=== PATIENT | female | born 1955 | race Caucasian/White ===

== ENCOUNTER 2019-12-14 12:06 | Outpatient (CLI) | payer SELFPAY ==
--- NOTE | 2019-12-14 | XR_ITS ---
WS: [id number] RIGHT KNEE: 3 VIEW(S) TECHNIQUE: AP, oblique(s) and lateral. HISTORY: RIGHT KNEE PAIN COMPARISON: 08/27/2018 Acute tibial plateau fracture extends to the tibial metaphysis. There is a fracture line from the raza tral tibial plateau which extends obliquely to the medial femoral metaphysis. Fracture line is slight ly comminuted and also extends laterally. No tibial plateau depression. Mild narrowing of the patellofemoral joint space. Small joint effusion. Notified JOSEFINA Suarez at 12/14/2019 2:32 PM. XR/XR knee RT 3V* [id number] IMPRESSION: Comminuted, nondisplaced tibial plateau fracture with extension to the tibial m etaphysis.
== END 2019-12-14 12:07 | disposition home or self-care (01) ==
LOC: RADOUTREAD 13:56
PROVIDERS: Visit Provider Physician Assistant
DX: Z76.89 Persons encountering health services in other specified circumstances (principal)

== ENCOUNTER 2019-12-16 11:13 | Outpatient (CLI) | payer SELFPAY ==
--- NOTE | 2019-12-16 11:17 | CT_ITS ---
WS: [id number] NONCONTRAST CT RIGHT KNEE WITH CORONAL AND SAGITTAL REFORMATTED IMAGES TECHNIQUE: Noncontrast CT right knee with coronal and sagittal reformatted images. CLINICAL INFORMATION: FX OF PLATEAU OF R TIBIA COMPARISON: None. DLP: 139.[address] scans at [facility] use at least one of these dose optimization techniques: automat ed exposure control; mA and/or kV adjustment per patient size (includes targeted exams where dose is matched to clinical indication); or iterative reconstruction. FINDINGS: Comminuted complex fracture involving the tibial plateau. Comminuted fracture involves the tibial met aphysis extending into the proximal diaphysis. Comminuted fracture extends to the tibial spines. Frac ture is vertically and horizontally oriented and involves the anterior and posterior cortex at the ti bial plateau. Slight fragmentation of the tibial spines. No displaced intra-articular fragments. Hypertrophic changes along the joint line. Distal femoral condyles are normal in appearance. Normal f ibula. Hypertrophic patella. Small suprapatellar effusion. CT/CT knee RT wo con* [id number] IMPRESSION: 1. Comminuted complex proximal tibial fracture extending to the tibial plateau at the tibial spines. No significant tibial plateau depression. 2. Complex fracture involves the tibial plateau extending to the metaphysis an d proximal diaphysis. Fracture traverses the anterior and posterior cortex. 3. Small suprapatellar effusion. 4. Hypertrophic patella.
== END 2019-12-16 11:14 | disposition home or self-care (01) ==
LOC: RAD 11:15
PROVIDERS: PCP Physician Assistant; Visit Provider Physician Assistant
DX: S82.141A Displaced bicondylar fracture of right tibia, initial encounter for closed fracture (principal); X58.XXXA Exposure to other specified factors, initial encounter; M25.461 Effusion, right knee
CPT/HCPCS: 73700

== ENCOUNTER 2019-12-16 12:13 | Day surgery (SDC) | payer SELFPAY ==
[2019-12-15 15:28] VITALS: BMI 24.0
--- NOTE | 2019-12-15 15:37 | SUR.PREOP ---
WHILE SPEAKING WITH PATIENT DURING HER PHONE PRE OP, AND GOING OVER HER MEDICATIONS, PATIENT STATED SHE HAS BEEN TAKING 4 BABY ASPIRIN EVERY 4 HOURS FOR PAIN. I CONFIRMED THIS WITH HER MULTIPLE TIMES TO MAKE SURE I WAS HEARING HER CORRECTING. SHE REPEATED THE SAME THING. SO THIS NURSE CALLED HCERI ZEPEDA'S NURSE AND TOLD HER WHAT THE PATIENT SAID. SHE STATED THAT SHE WOULD NOTIFY DR. ZEPEDA. CHERI CALLED BACK AND STATED SHE TEXTED DR. ZEPEDA ABOUT THE ASPIRIN AND DR. ZEPEDA SENT HER A TEXT BACK STATING GO FOR IT, WE'LL JUST USE A TOURNIQUET.
[2019-12-16] VITALS (8 sets, daily range): BP systolic 105–143; BP diastolic 61–99; PULSE 85–111; RESP 15–20; TEMP 36.2–37.1; O2SAT 90–96
--- NOTE | 2019-12-16 | XR_ITS ---
WS: [id number] C-ARM RADIOGRAPHS RIGHT KNEE; 4 IMAGES HISTORY: ORIF right knee COMPARISON: 12/14/2019 Plate and screw fixation of a comminuted fracture involving the proximal tibia. Fracture is in good p osition and alignment. No depression along the tibial plateau. XR/XR knee RT 1-2V [id number] IMPRESSION: Intraoperative fixation proximal tibial fracture in normal alignment.
--- NOTE | 2019-12-16 | SCC_ITS ---
Procedure Done: Open reduction internal fixation right bicondylar tibial plateau fracture 174.5 seconds of fluoroscopic guidance, for a cumulative dose of 5.79 mGy, was provided to Dr. Nickerson by the radiology department. C-arm images of the RIGHT knee were saved for the patient's permanent record. [facility]ALS[facility]
[2019-12-16] MEDS: sodium chloride 0.9% 1,000 ML 30 ML IV (12:30)
--- NOTE | 2019-12-16 12:52 | ANES.PREANE2 ---
Pre-Anesthetic Assessment Pre-Anesthetic Assessment: Height/Weight: Height 1.63 m Weight 63.503 kg Temp Pulse Resp BP Pulse Ox 98.7 F 93 20 H 114/99 93 12/16/19 12:27 12/16/19 12:27 12/16/19 12:27 12/16/19 12:27 12/16/19 12:27 Preop Diagnosis: Right medial tibial plateau fracture Proposed Procedure: Operation Date: 12/16/19 12:20 Proposed Procedures p ORIF Tibial Plateau 78590 S82.131A(Right) - Gladys Nickerson MD Last intake: Intake Last Liquid Date 12/15/19 Last Solid Date 12/15/19 Social: Social History: Tobacco Packs per day: 2.5 Pack years: 100+ Exam: Pre-Anes Outpt Exam: alert, oriented x 3, clear to auscultation bilaterally and regular rate & rhythm Airway: Submandibular: WNL Cervical ROM: WNL MP: 2 Hepatic: Hepatic: Hepatitis Comments: B age 15 Dx'd C '90/ cured Anesthetic Plan: ASA status: III Anesthesia: General Meds/Allergies Current Medications: Current Medications Generic Name Dose Route Start Last Admin Trade Name Freq PRN Reason Stop Dose Admin Sodium Chloride 1,000 mls @ 30 ml s/hr 12/16/19 12:30 12/16/19 12:30 Sodium Chloride 0.9% IV 12/17/19 12:29 30 mls/hr .Q24H LAZ Administration PFSH Anesthesia PFSH: Social History Smoking and tobacco status: current every day smoker cigarettes Packs smoked per day: 2.5 Alcohol intake: never Data Anesthesia Cardiac Studies: No Data to Display
[2019-12-16 12:53] LABS: Basophils # 0.1 10^3/uL (0.0-0.1); Basophils % 0.8 %; Eosinophils # 0.1 10^3/uL (0.0-0.8); Eosinophils % 0.6 %; Hemoglobin 15.2 g/dL (11.5-15.3); Lymphocytes # 2.2 10^3/uL (0.8-4.8); Mean Corpuscular Hemoglobin 30.5 pg (28.0-34.0); Mean Corpuscular Volume 92.2 fL (81-99); Mean Platelet Volume 8.1 fL (7.4-10.4); Monocytes # 0.6 10^3/uL (0.2-0.9); Monocytes % 5.4 %; Neutrophils # 7.6 10^3/uL (1.8-7.7); Neutrophils % 71.3 %; Nucleated Red Blood Cells % 0 %; Platelet Count 297 10^3/cmm (130-400); Red Blood Count 4.99 10^6/uL (4.1-5.3); Red Cell Distribution Width 13.7 % (12.1-15.1); White Blood Count 10.7 10^3/uL (4.0-10.0)
--- NOTE | 2019-12-16 12:53 | PM.HPUD ---
H&P update H&P Update: DATE OF SURGERY/PROCEDURE: 12/16/19 DATE H&P PERFORMED: 12/16/19 H&P UPDATE INFORMATION: No changes to prior documentation and H&P is in [facility] date indicated PREOP DIAGNOSIS: Right tibial bicondylar plateau fracture PLANNED PROCEDURE: Operation Date: 12/16/19 12:20 Proposed Procedures p ORIF Tibial Plateau 10657 S82.131A(Right) - Gladys Nickerson MD Full H&P Medications/Allergies: Current Medications: Current Medications Generic Name Dose Route Start Last Admin Trade Name Freq PRN Reason Stop Dose Admin Sodium Chloride 1,000 mls @ 30 ml s/hr 12/16/19 12:30 12/16/19 12:30 Sodium Chloride 0.9% IV 12/17/19 12:29 30 mls/hr .Q24H LAZ Administration Perinent History: Social History: Social History Smoking and tobacco status: current every day smoker cigarettes Packs smoked per day: 2.5 Alcohol intake: never
[2019-12-16 13:11] LABS: Anion Gap 17.3 (5-19); Blood Urea Nitrogen 18 mg/dL (8-23); Calcium 10.5 mg/dL (8.5-10.5); Carbon Dioxide 21 mmol/L (22-29); Chloride 103 mmol/L (98-107); Creatinine Clr Calc Pharmacy 87.0623; Glomerular Filtration Rate 100.6 mL/min (90-130); Glucose 101 mg/dL (65-115); Osmolality Calculated 281 mOsm/kg (285-295); Potassium 4.3 mmol/L (3.5-5.1); Sodium 137 mmol/L (136-145)
[2019-12-16] MEDS: CELEcoxib 200 mg Capsule 400 MG PO (13:13)
[2019-12-16] MEDS: ceFAZolin 1,000 mg SDV 1000 MG IRRIGATION (14:08)
--- NOTE | 2019-12-16 15:27 | P.OP_ITS ---
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 Minimal displacement. Condition: stable Disposition: same day Brief History: This 64-year-old woman was in her usual state of health when she fell approximately 3 weeks ago. The patient was seen on December 14 at her primary care/urgent care office at [facility]. At that time, the patient was found to have a tibial plateau fracture which appeared to involve only the medial portion of the condyle. Upon further evaluation with CT today, the patient was found to have a bicondylar tibial plateau fracture. She was scheduled for operative intervention and the fracture was repaired utilizing the Clarence lateral tibial plate. It is felt that the patient will likely be able to be discharged to home. Procedure: Patient was seen in the preoperative holding area and leg was marked. Patient was brought to the operating theater and placed on the operating room table. After undergoing adequate general anesthesia per LMA, the patient's right lower extremity was prepped and draped in usual fashion utilizing DuraPrep. The leg was draped free. Fluoroscopy was used throughout the surgical procedure. We did have a tourniquet high on the right lower extremity. This was elevated to 250 mmHg and total tourniquet time was 90 minutes. Tourniquet elevation followed exsanguination of the leg. A surgical pause was performed. At the time of the surgical pause we identified the site and side of surgery as well as the patient's identity and availability of equipment. We also confirmed appropriate administration of IV antibiotics. Following the above, an incision was made along the lateral aspect of the distal thigh progressing along the joint line and then anteriorly along the tibial sha ft. Skin was elevated and full-thickness fashion. The fascia overlying the anterior crest of the tibia was then incised to allow us to elevate soft tissues off the lateral aspect of the tibia. Periosteal elevator was used to expose the tibial shaft and the exposure was continued proximally to allow elevation of soft tissue from the lateral aspect of the very proximal tibia. A plate had been chosen. And this was placed in position and position of the plate was confirmed in AP and lateral planes. K wires were then used to hold the plate in position. 1 nonlocking screw was used in an attempt to pull the plate down to the bone. Initially, a cortical screw was utilized, however, secondary to the patient's bone quality, we did convert this to a cancellus screw. The plate was then attached to the bone primarily with locking screws and with fluoroscopic guidance throughout. We assured to have sufficient cortices numbering 6 distal to the fracture. Multiple screws were placed along the under portion of the tibial plateau to support the tibial plateau as well. We had excellent fixation with locking screws and excellent position of the fracture. Attention was then directed to closure. Closure was accomplished after irrigation with Betadine and normal saline. The wound was then irrigated with normal saline containing Ancef. Once this was accomplished, the wound was suctioned dry. The fascial tissues were closed with 0 Vicryl in an interrupted fashion. Subcutaneous tissues were closed with 2-0 Monocryl and the skin was closed with a running 3-0 Monocryl. This was followed by Exofin and Steri- Strips. Telfa and Tegaderm were then placed followed by sterile soft roll and an Basil wrap. The procedure was well tolerated without complication. Tourniquet time was 90 minutes at 250 mmHg. The patient will be discharged home to follow- up in my office as scheduled.
--- NOTE | 2019-12-16 15:40 | SUR.PHASEI ---
1539 PATIENT TO PACU AT THIS TIME FROM OR. RR EVEN AND UNLABORED, PT ON SIMPLE MASK FROM OR, 8L SPO2 94%. DRESSING TO RIGHT KNEE, CDI, WITH LISE BANDAGE. RIGHT PEDAL PULSE PALPATED AND MARKED, CAP REFILL LESS THAN 3 SECONDS.
--- NOTE | 2019-12-16 15:50 | SUR.PHASEI ---
[address] HINGED KNEE BRACE. PATIENT TOLERATED PROCEDURE WELL.
--- NOTE | 2019-12-16 16:00 | SUR.PHASEI ---
1600 PATIENTS RIDE CALLED AND UPDATED THAT SHE WILL BE READY FOR DISCHARGE SOON.
--- NOTE | 2019-12-16 16:06 | SUR.PHASEI ---
1601 PATIENT TO OPS VIA [facility]. PATIENT DENIES PAIN. RR EVEN AND UNLABORED. DRESSING WITH LISE WRAP INTACT TO RIGHT KNEE WITH HINGED KNEE BRACE IN PLACE.
== END 2019-12-16 17:16 | disposition home or self-care (01) ==
PROVIDERS: PCP Physician Assistant; Visit Provider Specialist
PROC: (CPT 27536; principal; 2019-12-16 12:00)
DX: S82.141A Displaced bicondylar fracture of right tibia, initial encounter for closed fracture (principal); W19.XXXA Unspecified fall, initial encounter; F17.210 Nicotine dependence, cigarettes, uncomplicated; Z79.82 Long term (current) use of aspirin
CPT/HCPCS: 27536; 12345; 36415; 73560; 76000; 80048; 85025; 96365; C1713; J0131; J0690; J1885; J2001; J2250; J2270; J2405; J2704; J3010; J3490; J7030; L1812

== ENCOUNTER → 2020-01-04 11:36 | Outpatient (BNVA) | payer SELFPAY | PROVIDERS: PCP Physician Assistant; Visit Provider Specialist | DX: S82.141A Displaced bicondylar fracture of right tibia, initial encounter for closed fracture (principal); X58.XXXA Exposure to other specified factors, initial encounter | CPT/HCPCS: 73560 ==

== ENCOUNTER → 2020-02-03 13:03 | Outpatient (BNVA) | payer SELFPAY | PROVIDERS: PCP Physician Assistant; Visit Provider Specialist | DX: M25.561 Pain in right knee (principal); S82.101A Unspecified fracture of upper end of right tibia, initial encounter for closed fracture; X58.XXXA Exposure to other specified factors, initial encounter | CPT/HCPCS: 73560 ==

== ENCOUNTER → 2020-03-02 13:10 | Outpatient (BNVA) | payer SELFPAY | PROVIDERS: PCP Physician Assistant; Visit Provider Specialist | DX: S82.141A Displaced bicondylar fracture of right tibia, initial encounter for closed fracture (principal); Z98.890 Other specified postprocedural states; X58.XXXA Exposure to other specified factors, initial encounter | CPT/HCPCS: 73560; 73565 ==

== ENCOUNTER → 2020-03-28 11:36 | Outpatient (BNVA) | payer SELFPAY | PROVIDERS: PCP Physician Assistant; Visit Provider Specialist | DX: S82.141A Displaced bicondylar fracture of right tibia, initial encounter for closed fracture (principal); Z98.890 Other specified postprocedural states; Z87.81 Personal history of (healed) traumatic fracture; X58.XXXA Exposure to other specified factors, initial encounter | CPT/HCPCS: 73562 ==

== ENCOUNTER 2022-02-20 14:09 | Inpatient (IN) | payer MEDICARE, SELFPAY ==
[2022-02-20] VITALS (10 sets, daily range): BP systolic 124–167; BP diastolic 78–104; PULSE 98–125; RESP 18–33; TEMP 36.4; O2SAT 89–94; BMI 26.2; BMI 27.2
--- NOTE | 2022-02-20 14:32 | XRR_ITS ---
PROCEDURE INFORMATION: Exam: XR Chest Exam date and time: 02/20/2022 2:40 PM Age: 66 years old Clinical indication: Cough and dyspnea; Additional info: Dyspnea/cough TECHNIQUE: Imaging protocol: XR of the chest. Views: 1 view. COMPARISON: CR Chest 1 [place] [id number] 06/17/2018 4:01 AM FINDINGS: Lungs: Unremarkable. No consolidation. Pleural spaces: Right lower lobe pleural effusion is seen. No pneumothorax. Heart/Mediastinum: Unremarkable. No cardiomegaly. Bones/joints: Unremarkable. XR/XR chest 1V portable [id number] IMPRESSION: 1. Right lower lobe pleural effusion 2. Otherwise No acute findings.
--- NOTE | 2022-02-20 14:32 | W.ED.SOB ---
HPI - SOB/Dyspnea General: Chief Complaint: Shortness of Breath/Dyspnea Stated Complaint: sent to ER per Sandip Bleckley? Time Seen by Provider: 02/20/22 14:32 Source: patient Mode of arrival: ambulatory Limitations: no limitations History of Present Illness: HPI Narrative: 66-year-old female presents to the emergency room complaining of shortness of breath. She had not been seen by her primary care in quite some time came to the primary care office today was hypoxic and had audible wheezing with labored respirations. She denies fever nausea no productive cough.She has had some orthopnea with that as well. MD elicited complaint: shortness of breath and cough Pertinent past history: COPD Onset (ago): day(s) Timing: constant Severity: severe Exacerbating factors: lying flat, exertion and coughing Relieving factors: oxygen, rest and bronchodilators Known history of: COPD Associated symptoms: Reports chest congestion, cough and orthopnea; Deny abdominal pain, chest pain, diaphoresis, dizziness, extremity pain, fever(s), hemoptysis, lightheadedness, myalgias, nausea, palpitations, paresthesias, polydipsia, polyuria, rash, sense of impending doom, syncope or vomiting Treatment prior to arrival: none Review of Systems Const: Denies: fever(s), chills or diaphoresis ENMT: Denies: throat pain, ear or mastoid pain, nasal discharge or nasal congestion Card: Reports: orthopnea; Denies: chest pain, palpitations, lightheadedness or syncope Resp: Reports: chest congestion; Denies: hemoptysis GI: Denies: abdominal pain, nausea or vomiting : Denies: flank pain, difficulty voiding, dysuria, urinary frequency or urinary urgency Musc: Denies: extremity pain Skin/Breast: Denies: rash or pruritus Neuro: Denies: dizziness Endo: Denies: polyuria or polydipsia PFS ED PFSH: Medical History (Updated 02/21/22 @ 10:23 by George Park DO) Closed bicondylar fracture of right tibial plateau Surgical History S/P ORIF (open reduction internal fixation) fracture Social History Smoking and tobacco status: current every day smoker cigarettes Packs smoked per day: 2.5 Alcohol intake: never Physical Exam Const: GENERAL APPEARANCE: anxious and ill appearing ORIENTATION/CONSCIOUSNESS: Yes oriented to person, Yes oriented to place and Yes oriented to time HENMT: COMMON NORMALS: normocephalic, atraumatic and hearing grossly normal bilaterally HEAD & SCALP: normocephalic and atraumatic Neck/C-Spine: COMMON NORMALS: no JVD Resp: EFFORT & INSPECTION: Yes tachypneic, Yes respiratory distress, Yes labored and Yes uses accessory muscles AUSCULTATION: wheezes Cardio: COMMON NORMALS: no JVD, regular rhythm and No murmurs present (Cardio) RATE: tachycardic RHYTHM: regular rhythm GI: COMMON NORMALS: Soft to palpation and No hepatosplenomegaly present AUSCULTATION: Yes normoactive bowel sounds PALPATION: Yes Soft to palpation, No Tenderness to palpation present (GI), No Guarding due to palpation present (GI) and Yes No hepatosplenomegaly present Extremity: GENERAL: Yes edema (Trace lower extremity edema) Neuro: SENSORIUM/ORIENTATION: Yes oriented to person, Yes oriented to place and Yes oriented to time Skin: COMMON NORMALS: no rashes or lesions noted GENERAL SKIN EXAM: no rashes or lesions noted Course Vital Signs: Vital signs: Vital Signs Temperature 98.0 F 02/21/22 04:00 Pulse Rate 89 02/21/22 08:31 Respiratory Rate 16 02/21/22 08:31 Blood Pressure 153/80 02/21/22 07:55 Pulse Oximetry 96 02/21/22 08:31 MDM - SOB/Dyspnea Medical Decision Making Moderate right pleural effusion with exacerbation of COPD. Will admit Discussed with hospitalist orders are written. CTA shows no pulmonary emboli but has a large mediastinal mass concerning for malignancy with multiple pleural-based nodules and pulmonary nodules. Multiple hepatic lesions as well. Medical Records I reviewed the patient's medical records. Lab Data I reviewed the patient's lab results. : 02/20/22 15:40 02/20/22 15:40 Labs/Radiology: Radiology Impressions Chest X-Ray 02/20/22 14:32 IMPRESSION: 1. Right lower lobe pleural effusion 2. Otherwise No acute findings. Chest CTA 02/20/22 15:23 IMPRESSION: 1. Negative for pulmonary embolism. 2. Large mediastinal mass consistent with pulmonary malignancy. 3. Multiple pleural based and pulmonary nodules consistent with metastatic disease. 4. Right lower lobe pleural effusion. 5. Atelectasis with collapse in the posterior right lower lobe. 6. Hepatomegaly with multiple hepatic metastatic lesions. 7. Benign cyst left kidney 8. Negative for right heart strain 9. Diffuse emphysematous changes in both lungs. Chest Ultrasound 02/20/22 18:57 IMPRESSION: No pleural effusions identified. Laboratory Results WBC 20.5 10^3/uL (4.0-10.0) H 02/20/22 15:40 RBC 5.18 10^6/uL (4.1-5.3) 02/20/22 15:40 Hgb 16.2 g/dL (11.5-15.3) H 02/20/22 15:40 Hct 47.9 % (37.0-47.0) H 02/20/22 15:40 MCV 92.5 fl (81-99) 02/20/22 15:40 MCH 31.3 pg (28.0-34.0) 02/20/22 15:40 MCHC 33.8 g/dL (30.0-36.0) 02/20/22 15:40 RDW 14.1 % (12.1-15.1) 02/20/22 15:40 Plt Count 358 10^3/cmm (130-400) 02/20/22 15:40 MPV 9.7 fL (7.4-10.4) 02/20/22 15:40 Neut % (Auto) 80.5 % 02/20/22 15:40 Lymph % (Auto) 9.3 % 02/20/22 15:40 Sharkey % (Auto) 5.6 % 02/20/22 15:40 Eos % (Auto) 0.0 % 02/20/22 15:40 Baso % (Auto) 0.5 % 02/20/22 15:40 Neut # (Auto) 16.49 10^3/uL (1.8-7.7) H 02/20/22 15:40 Lymph # (Auto) 1.9 10^3/uL (0.8-4.8) 02/20/22 15:40 Sharkey # (Auto) 1.2 10^3/uL (0.2-0.9) H 02/20/22 15:40 Eos # (Auto) 0.0 10^3/uL (0.0-0.8) 02/20/22 15:40 Baso # (Auto) 0.1 10^3/uL (0.0-0.1) 02/20/22 15:40 Nucleated RBC % (auto) 0.1 % 02/20/22 15:40 Nucleated RBCs # 0.0 /100WBC 02/20/22 15:40 Specimen Type Arterial 02/20/22 14:45 Sample Site Radial, left 02/20/22 14:45 ABG pH 7.53 (7.35-7.45) H 02/20/22 14:45 ABG pCO2 30.9 mmHg (35-45) L 02/20/22 14:45 ABG pO2 69.2 mmHg (80.0-100.0) L 02/20/22 14:45 ABG HCO3 25.6 mmol/L (22-26) 02/20/22 14:45 ABG O2 Saturation 93.2 02/20/22 14:45 ABG Base Excess 3.5 mmol/L (-2.0-2.0) H 02/20/22 14:45 Anant Test Pos 02/20/22 14:45 A-a O2 Gradient 11.6 mmHg (5-10) H 02/20/22 14:45 Hematocrit 46.3 % (37-47) 02/20/22 14:45 Hgb O2 Saturation 91.9 % (95-100) L 02/20/22 14:45 Carboxyhemoglobin 0.8 %THgb (0.4-20.1) 02/20/22 14:45 Methemoglobin 0.6 % (0.4-1.5) 02/20/22 14:45 Total Hemoglobin 15.1 g/dL (12-16) 02/20/22 14:45 Sodium 139.0 mmol/L (131-143) 02/20/22 14:45 Potassium 2.6 mmol/L (3.5-5.0) L 02/20/22 14:45 Glucose 300.0 mg/dL (70-115) H 02/20/22 14:45 Ionized Calcium 1.2 mmol/L (1.1-1.4) 02/20/22 14:45 O2 Delivery Device Nc 02/20/22 14:45 O2 Liters/Min 2.0 % 02/20/22 14:45 FiO2 28.0 % 02/20/22 14:45 Geographic Information System Surveyor ID Ed 02/20/22 14:45 Sodium 138 mmol/L (136-145) 02/20/22 15:40 Potassium 3.3 mmol/L (3.5-5.1) L 02/20/22 15:40 Chloride 95 mmol/L (98-107) L 02/20/22 15:40 Carbon Dioxide 25 mmol/L (22-29) 02/20/22 15:40 Anion Gap 21.3 (5-19) H 02/20/22 15:40 BUN 21 mg/dL (8-23) 02/20/22 15:40 Creatinine 0.7 mg/dL (0.5-0.9) 02/20/22 15:40 GFR Calculation 83.7 mL/min (90-130) L 02/20/22 15:40 Glucose 223 mg/dL (65-115) H 02/20/22 15:40 Calculated Osmolality 296 mOsm/kg (285-295) H 02/20/22 15:40 Calcium 10.3 mg/dL (8.5-10.5) 02/20/22 15:40 Total Bilirubin 0.3 mg/dL (0.15-1.2) 02/20/22 15:40 AST 65 U/L (0-32) H 02/20/22 15:40 ALT 80 U/L (0-33) H 02/20/22 15:40 Alkaline Phosphatase 231 IU/L (35-105) H 02/20/22 15:40 Creatine Kinase 56 U/L (26-192) 02/20/22 15:40 Troponin T Baseline 12 ng/L (0-10) H 02/20/22 15:40 Total Protein 7.7 g/dL (6.6-8.7) 02/20/22 15:40 Albumin 4.9 g/dL (3.5-5.2) 02/20/22 15:40 Globulin 2.8 g/dL (1.3-4.6) 02/20/22 15:40 Urine Color Denise (Yellow) 02/20/22 15:20 Urine Appearance Clear (CLEAR) 02/20/22 15:20 Urine pH 5 (5-7) 02/20/22 15:20 Ur Specific [place] 1.015 (1.005-1.030) 02/20/22 15:20 Urine Protein 1+ (Negative) H 02/20/22 15:20 Urine Glucose (UA) Trace (Normal) H 02/20/22 15:20 Urine Ketones 1+ (Negative) H 02/20/22 15:20 Urine Blood Trace (Negative) H 02/20/22 15:20 Urine Nitrate Negative (Negative) 02/20/22 15:20 Urine Bilirubin 2+ (Negative) H 02/20/22 15:20 Urine Urobilinogen 1 mg/dL (Negative) H 02/20/22 15:20 Ur Leukocyte Esterase Negative (Negative) 02/20/22 15:20 Urine RBC 0-4 /hpf (0-2) H 02/20/22 15:20 Urine WBC 0-4 /hpf (0-5) H 02/20/22 15:20 Ur Squamous Epith Cells 0-4 /hpf (0-5) H 02/20/22 15:20 Amorphous Sediment Not Reportable 02/20/22 15:20 Urine Bacteria Trace /hpf (NONE) 02/20/22 15:20 Hyaline Casts 0-4 /lpf H 02/20/22 15:20 Urine Mucus 2+ /hpf 02/20/22 15:20 Discharge Plan Discharge Patient Disposition: Admitted As Inpatient Admit Provider: Alonzo Ng Clinical Impression: Acute exacerbation of chronic obstructive airways disease, Mass of mediastinum, Hepatic metastases, Pleural effusion on right Condition: Stable Coding Level of Care Code 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
--- NOTE | 2022-02-20 14:38 | ECG_ITS ---
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 Measurements Intervals [place] Rate: 120 P: 45 MS: 154 QRS: -30 QRSD: 74 T: 38 QT: 353 QTc: 501 Interpretive Statements SINUS TACHYCARDIA POSSIBLE ANTERIOR MYOCARDIAL INFARCTION , PROBABLY OLD [30 ms Q WAVE IN V3/V4, OR R < 0.2 mV IN V4] INFERIOR MYOCARDIAL INFARCTION , PROBABLY OLD [40+ ms Q WAVE AND/OR ST/T ABNORMALITY IN II/aVF] Compared to ECG 06/17/2018 06:09:05 Myocardial infarct finding now present Sinus rhythm no longer present Electronically Signed On 02-20-2022 18:37:34 CDT by Kusum Castellano M.D. [email or web address]
[2022-02-20] MEDS: ipratropium-albuterol 3 mL Neb INHALATION (14:45)
--- NOTE | 2022-02-20 15:23 | CTR_ITS ---
PROCEDURE INFORMATION: Exam: CTA Chest With Contrast Exam date and time: 02/20/2022 5:44 PM Age: 66 years old Clinical indication: Dyspnea; Additional info: Dyspena/tachycardia TECHNIQUE: Imaging protocol: Computed tomographic angiography of the chest with contrast. 3D rendering (Not supervised by radiologist): MIP and/or 3D reconstructed images were created by the technologist. Radiation optimization: All CT scans at this facility use at least one of these dose optimization techniques: automated exposure control; mA and/or kV adjustment per patient size (includes targeted exams where dose is matched to clinical indication); or iterative reconstruction. Contrast material: OMNI 300; Contrast volume: 95 ml; Contrast route: INTRAVENOUS (IV); COMPARISON: CR XR chest 1V portable [id number] 02/20/2022 2:40 PM RADIATION DOSE METRICS: Total DLP (mGy-cm): 492.2 FINDINGS: Pulmonary arteries: Normal. No pulmonary emboli. Aorta: Unremarkable. No aortic aneurysm. No aortic dissection. Lungs: There is atelectasis with evidence of collapsed right lower lobe. No consolidation. No masses. There is diffuse emphysematous changes are seen in both lungs. Pleural spaces: Unremarkable. No pneumothorax. There is a large right lower lobe pleural effusion. Pleural base mass is seen in the anterior central right chest 14 mm x 20 mm pleural thickening is seen in the lateral aspect of the right lower lobe 11 mm. There is a pleural base nodule adjacent to the right middle lobe measuring 9 mm. The left lung shows a pleural base nodule at the level of the perfecto measuring 10 x 8 mm there are a few scattered small nodule seen in the left lung. These findings correspond to hematogenous metastatic disease. Heart: Negative for right heart strain. No cardiomegaly. No pericardial effusion. Mediastinum: There are multiple mass lesions in the mediastinum a right paratracheal mass measures 17 mm x 20 mm this finding has a longitudinal measurement of 45 mm in the precarinal tissues this mass measures 39 mm x 20 mm. The subcarinal region this mass measures 37 mm x 43 mm. This mass extends to the right hilum measuring 43 mm x 30 mm . In the right lower lobe in the pericardiac region measuring 50 mm x 54 mm. this finding corresponds to a pulmonary malignancy. Bones/joints: There is generalized osteopenia seen. Multiple compression fractures are seen in the lower thoracic spine and the upper lumbar spine. The age of these fractures is indeterminate. Soft tissues: Diffuse hepatic lucency is seen consistent with steatosis. There are multiple abnormal areas of enhancement seen throughout the liver consistent with diffuse hematogenous metastatic disease. There is hepatomegaly the liver span is 18 cm the left hepatic lobe extends to the left upper quadrant. CT/CT angio chest PE protcl [id number] IMPRESSION: 1. Negative for pulmonary embolism. 2. Large mediastinal mass consistent with pulmonary malignancy. 3. Multiple pleural based and pulmonary nodules consistent with metastatic disease. 4. Right lower lobe pleural effusion. 5. Atelectasis with collapse in the posterior right lower lobe. 6. Hepatomegaly with multiple hepatic metastatic lesions. 7. Benign cyst left kidney 8. Negative for right heart strain 9. Diffuse emphysematous changes in both lungs.
[2022-02-20 15:50] LABS: Glucose Urine UA Trace (Normal); Ketones Urine 1+ (Negative); Protein Urine 1+ (Negative); Specific Gravity, Urine 1.015 (1.005-1.030); Urine Appearance Clear (CLEAR); Urine Color Amber (Yellow); pH Urine 5 (5-7)
[2022-02-20 15:52] LABS: Bilirubin Urine 2+ (Negative); Blood Urine Trace (Negative); Leukocyte Esterase Urine Negative (Negative); Nitrate Urine Negative (Negative); Urobilinogen Urine 1 mg/dL (Negative)
[2022-02-20 16:07] LABS: Add Urine Culture? No; Add Urine Microscopic? YES; Bacteria Urine TRACE /hpf; Hyaline Casts Urine 0-4 /lpf; Mucus Urine 2+ /hpf; RBC Urine 0-4 /hpf (0-2); Squamous Epithelial Cell Urine 0-4 /hpf (0-5); WBC Urine 0-4 /hpf (0-5)
[2022-02-20 16:16] LABS: Troponin(5th) Baseline 12 ng/L (0-10)
[2022-02-20 16:17] LABS: Alanine Aminotransferase 80 U/L (0-33); Albumin Level 4.9 g/dL (3.5-5.2); Alkaline Phosphatase 231 IU/L (35-105); Blood Urea Nitrogen 21 mg/dL (8-23); Calcium 10.3 mg/dL (8.5-10.5); Carbon Dioxide 25 mmol/L (22-29); Chloride 95 mmol/L (98-107); Creatine Phosphokinase 56 U/L (26-192); Globulin 2.8 g/dL (1.3-4.6); Glomerular Filtration Rate 83.7 mL/min (90-130); Glucose 223 mg/dL (65-115); Osmolality Calculated 296 mOsm/kg (285-295); Sodium 138 mmol/L (136-145); Total Bilirubin 0.3 mg/dL (0.15-1.2); Total Protein 7.7 g/dL (6.6-8.7)
[2022-02-20 16:19] LABS: Anion Gap 21.3 (5-19); Aspartate Amino Transferase 65 U/L (0-32); Potassium 3.3 mmol/L (3.5-5.1)
--- NOTE | 2022-02-20 16:38 | ECG_ITS ---
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 Measurements Intervals [place] Rate: 106 P: 58 TX: 154 QRS: 3 QRSD: 76 T: 43 QT: 347 QTc: 461 Interpretive Statements SINUS TACHYCARDIA ABNORMAL RHYTHM ECG Compared to ECG 02/20/2022 14:36:41 Myocardial infarct finding no longer present Electronically Signed On 02-20-2022 18:39:41 CDT by Kusum Castellano M.D. [id number]
[2022-02-20 16:47] LABS: Basophils # 0.1 10^3/uL (0.0-0.1); Basophils % 0.5 %; Hematocrit 47.9 % (37.0-47.0); Hemoglobin 16.2 g/dL (11.5-15.3); Lymphocytes # 1.9 10^3/uL (0.8-4.8); Lymphocytes % 9.3 %; Mean Corpuscular HGB Conc 33.8 g/dL (30.0-36.0); Mean Corpuscular Hemoglobin 31.3 pg (28.0-34.0); Mean Corpuscular Volume 92.5 fl (81-99); Mean Platelet Volume 9.7 fL (7.4-10.4); Monocytes # 1.2 10^3/uL (0.2-0.9); Monocytes % 5.6 %; Neutrophils # 16.49 10^3/uL (1.8-7.7); Neutrophils % 80.5 %; Nucleated Red Blood Cells % 0.1 %; Platelet Count 358 10^3/cmm (130-400); Red Blood Count 5.18 10^6/uL (4.1-5.3); Red Cell Distribution Width 14.1 % (12.1-15.1); White Blood Count 20.5 10^3/uL (4.0-10.0)
--- NOTE | 2022-02-20 16:56 | PM.HP ---
Providers/Chief Complaint Primary Care Provider: Nhung Perkins Chief Complaint: sent to ER per Sandip Macias? History of Present Illness Heavenly Gallardo is a 66 year old female with no significant past medical history chronic smoking has smoked close to 2 packs of cigarettes daily form age 15 ,came in with chief complaint of worsening shortness of breath , orthopnea started since the November, she denies any chest pain, fever , cough , runny nose , nausea vomiting. Upon arrival in the ER she was worked up for abdominal complaint: Pertinent imaging studies: X-ray chest: Moderate right-sided pleural effusion CTA chest: Pertinent labs: WBC : 20.5 , H&H:16/47 , PLT : 358 , Serum sodium 138 serum potassium 3.3 , BUN / serum creatinine 21/ 0.7 , random blood sugar 223 , AST 65 ALT 80 ALP 231 Troponin trend:12 Review of Systems General: Reports: 10 or more systems reviewed and unremarkable except in HPI and below Const: Denies: fever(s), chills, body aches, change in appetite or diaphoresis Card: Reports: dyspnea on exertion and orthopnea; Denies: palpitations, swelling of feet/ankles or leg pain with exertion Resp: Reports: dyspnea; Denies: productive cough, wheezing or pain on inspiration GI: Denies: abdominal pain, nausea, vomiting, diarrhea or constipation : Denies: flank pain Musc: Denies: back pain, extremity pain or extremity swelling Neuro: Reports: headache(s); Denies: difficulty walking or confusion Medications/Allergies Home Medications Medication Instructions Recorded Confirmed Last Taken Type albuterol sulfate 90 mcg/actuation 2 puff INHALATION Q4H PRN 02/20/22 02/20/22 Unknown History aerosol inhaler aspirin 325 mg tablet 1,300 mg PO BID 02/20/22 02/20/22 02/20/22 14:30 History jvjmyeq-vpvjcfsmvijyu-yxonipli 250 2 tab PO Q6H PRN 02/20/22 02/20/22 Unknown History mg-250 mg-65 mg tablet (Excedrin Migraine) epinephrine 0.125 mg/actuation 1 puff INHALATION Q4H PRN 02/20/22 02/20/22 Unknown History aerosol inhaler (Primatene Mist) pantoprazole 40 mg tablet,delayed 40 mg PO DAILY 02/20/22 02/20/22 02/20/22 14:30 History release Allergies Allergy/AdvReac Type Severity Reaction Status Date / Time No Known Allergies Allergy Verified 02/20/22 14:27 PFSH Acute PFSH: Medical History (Updated 02/20/22 @ 17:00 by Alonzo Ng MD) Closed bicondylar fracture of right tibial plateau Surgical History (Updated 03/29/20 @ 11:44 by Gladys Nickerson MD) S/P ORIF (open reduction internal fixation) fracture Social History Smoking and tobacco status: current every day smoker cigarettes Packs smoked per day: 2.5 Alcohol intake: never Vitals/I&O/Wt Last Vital Signs Temp 97.5 F L 02/20/22 14:41 Pulse 112 H 02/20/22 15:33 Resp 28 H 02/20/22 15:33 BP 125/89 02/20/22 15:33 Pulse Ox 94 02/20/22 15:33 Weight last 48 hrs Weight 69.4 kg Physical Exam Const: COMMON NORMALS: patient oriented x3 HENMT: COMMON NORMALS: normocephalic and atraumatic HEAD & SCALP: normocephalic and atraumatic Eye: GENERAL EYE: appearance normal, both eyes and all related structures Chest: COMMONS NORMALS: normal inspection of the chest and normal palpation of entire chest wall CHEST: Yes Symmetrical chest wall rise Resp: EFFORT & INSPECTION: Yes symmetric chest movement AUSCULTATION: clear to auscultation bilaterally OTHER: Diminished air entry at rt lung base Cardio: COMMON NORMALS: regular rate, regular rhythm, S1 normal heart sound present, S2 normal heart sound present, No gallops present (Cardio), No murmurs present (Cardio), No rub (Cardio) and Peripheral pulses 2+ throughout RATE: regular rate RHYTHM: regular rhythm HEART SOUNDS: S1 normal heart sound present and S2 normal heart sound present PERIPHERAL PULSES: Peripheral pulses 2+ throughout GI: COMMON NORMALS: Normal to inspection, nondistended, normoactive bowel sounds present, Soft to palpation, non-tender, No hepatosplenomegaly present and no masses AUSCULTATION: Yes normoactive bowel sounds PALPATION: Yes Soft to palpation and Yes No hepatosplenomegaly present RECTAL EXAM: deferred Extremity: COMMON NORMALS: no clubbing, cyanosis or edema and no pedal edema Neuro: COMMON NORMALS: patient oriented x3 Data : 02/20/22 15:40 02/20/22 15:40 A&P Assessment and plan (1) Pleural effusion: Status: Acute (2) Hypoxia: Status: Acute (3) Transaminitis: Status: Acute (4) Hypokalemia: Status: Acute Plan 66 year old female with no significant past medical history came in with chief complaint of worsening shortness of breath , orthopnea started since the November. Assessment: #Symptomatic right-sided malignant pleural effusion: Diagnostic/therapeutic tap Ultrasound chest Empirically on ceftriaxone azithromycin Duo nebs # Large mediastinal mass consistent with pulmonary malignancy. Pulmonary follow-up as an outpatient or inpatient #Multiple pleural based and pulmonary nodules consistent with metastatic disease. #Hepatomegaly with multiple hepatic metastatic lesions. Transaminitis: Likely secondary to hepatic mets Monitor CMP Hypokalemia CODE STATUS: Full code DVT prophylaxis: Lovenox Attestations Medical Necessity Statement*: Patient is to be in hospital for management of symptomatic right-sided pleural effusion , shortness of breath , hypoxia. Anticipated length of stay greater than 2 midnights. Time Spent in Patient Care: Greater than 35 minutes (>than 50% of time spent in counselling and/or direct pt care on unit). Coding Level of Care Code Acute Roundhouse Supervisor for Chg Fwd Exam Comprehensive Diagnoses Pleural effusion J90 Hypoxia R09.02 Transaminitis R74.01 Hypokalemia E87.6
[2022-02-20] MEDS: enoxaparin 40 mg/0.4 mL Syringe SUBCUT (17:15)
[2022-02-20] MEDS: cefTRIAXone 1,000 MG in sodium chloride 0.9% (plus) 50 ML 100 MG IV (17:15)
--- NOTE | 2022-02-20 17:34 | USCV_ITS ---
Heavenly Gallardo Age: 66 Gender: F : 1955 Exam Date: 02/20/2022 17:53 Ordering Phys: Alonzo Ng MD Technologist: Susana Abraham Exam Location: [facility] [place] Indication: new onset pleural effusion BP: 155 / 104 HR: 98 Rhythm: Sinus Technical Quality: Adequate MEASUREMENTS (Male / Female) Normal Values 2D ECHO LV Diastolic Diameter PLAX 3.7 cm 4.2 - 5.9 / 3.9 - 5.3 cm LV Systolic Diameter PLAX 1.9 cm IVS Diastolic Thickness 1.2 cm 0.6 - 1.0 / 0.6 - 0.9 cm IVS Systolic Thickness 1.6 cm LVPW Diastolic Thickness 1.3 cm 0.6 - 1.0 / 0.6 - 0.9 cm LVPW Systolic Thickness 1.3 cm RV Chamber Size 2.5 cm LVOT Diameter 2.1 cm LV Ejection Fraction 2D Teich 80.7 % LV Ejection Fraction MOD 2C 72.7 % LV Ejection Fraction 2C AL 72.4 % LA Diameter 3.4 cm LA Width 2.4 cm LA Height 4.3 cm RA Width 2.3 cm RA Height 2.6 cm Aorta at Sinotubular Diameter 2.3 cm M-MODE Aortic Annulus Diameter 3.0 cm LA Ao Ratio MM 1.3 MV E Point Septal Separation 0.4 cm DOPPLER AV Peak Velocity 175.0 cm/s LVOT Peak Velocity 144.0 cm/s AV Area Cont Eq vti 2.9 cm squared AV Area Cont Eq pk 2.8 cm squared MV Area PHT 5.8 cm squared Mitral E to A Ratio 0.8 MV E' Velocity 43.5 cm/s Mitral E to MV E' Ratio 9.5 Mitral E to LV E' Lateral Ratio 9.5 Mitral E to LV E' Septal Ratio 9.5 TR Peak Velocity 273.1 cm/s TR Peak Gradient 29.8 mmHg TR Mean Velocity 124.9 cm/s TR Mean Gradient 6.6 mmHg TR Velocity Time Integral 35.4 cm TV Peak E Velocity 97.0 cm/s Right Atrial Pressure 3.0 mmHg Pulmonary Artery Systolic Pressu 32.8 mmHg PV Peak Velocity 76.0 cm/s RV Acceleration Time 0.1 s RV Ejection Time 0.3 s RV AcT/ET 0.4 FINDINGS Left Ventricle Normal left ventricular size and systolic function, EF 67 %. No regional wall motion abnormalities. Grade I/IV diastolic dysfunction (abnormal relaxation filling pattern), normal to mildly elevated filling pressures. Right Ventricle The right ventricle is normal in size and function. Right Atrium The right atrium is normal in size. Left Atrium The left atrium is normal in size. Mitral Valve No gross abnormalities noted Aortic Valve Thickened aortic valve. Tricuspid Valve No gross abnormalities noted Pulmonic Valve No gross abnormalities noted Pericardium Normal pericardium without effusion. Aorta Normal ascending aorta dimension. CONCLUSIONS Normal left ventricular size and systolic function, EF 67 %. No regional wall motion abnormalities. Grade I/IV diastolic dysfunction (abnormal relaxation filling pattern), normal to mildly elevated filling pressures. Thickened aortic valve. There is no pericardial effusion. There are no intracardiac masses. No previous study is available for comparison. Dr Jimmy Hdz MD [facility] (Electronically Signed) Final Date: 21 February 2022 00:00 S
[2022-02-20] MEDS: iohexol 300 mg/mL 100 mL Btl IV (17:53)
[2022-02-20] MEDS: azithromycin 500 MG in sodium chloride 0.9% 250 ML 250 MG IV (18:10)
--- NOTE | 2022-02-20 18:57 | US_ITS ---
WS: [id number] Ultrasound chest, bilateral. HISTORY: Evaluate for pleural effusion. No significant pleural effusion identified. There was only a very small effusion on the CT of 02/21/20 within the RIGHT thorax. US/US chest [id number] IMPRESSION: No pleural effusions identified.
[2022-02-20 19:11] LABS: Troponin 5 2HR 10.92 ng/L (0-10)
[2022-02-20 19:14] LABS: Troponin 5 2HR Delta -1.08 ABS# (0-10)
[2022-02-20] MEDS: lidocaine 1% 5 ML in potassium chloride premix 100 ML 50 ML IV (20:14)
--- NOTE | 2022-02-20 20:38 | ECG_ITS ---
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 Measurements Intervals [place] Rate: 97 P: 44 MI: 149 QRS: -27 QRSD: 80 T: 14 QT: 368 QTc: 468 Interpretive Statements SINUS RHYTHM POSSIBLE ANTERIOR MYOCARDIAL INFARCTION , OF INDETERMINATE AGE [30 ms Q WAVE IN V3/V4, OR R < 0.2 mV IN V4] Compared to ECG 02/20/2022 16:27:29 Myocardial infarct finding now present Sinus tachycardia no longer present Electronically Signed On 02-21-2022 6:48:16 CDT by Kusum Castellano M.D. [id number]
[2022-02-21] VITALS (9 sets, daily range): BP systolic 142–160; BP diastolic 80–98; PULSE 80–99; RESP 16–20; TEMP 36.6–36.8; O2SAT 90–96
[2022-02-21] MEDS: acetaminophen 325 mg Tablet 650 MG PO ×3 (00:04→16:37)
[2022-02-21 08:27] LABS: ABG PCO2 30.9 mmHg (35-45); ABG PH Result 7.53 (7.35-7.45); Alveolar-Arterial Oxygen Gradi 11.6 mmHg (5-10); Arterial Blood Gas Hematocrit 46.3 % (37-47); Base Excess ABG 3.5 mmol/L (-2.0-2.0); Blood Gas Allen Test Pos; Blood Gas Operator Identificat ED; Blood Gas Sample Site Radial, left; Blood Gas Sample Type Arterial; Carboxyhemoglobin 0.8 %THgb (0.4-20.1); HCO3 ABG 25.6 mmol/L (22-26); HGB O2 Sat 91.9 % (95-100); Ionized Calcium Level - ABG 1.2 mmol/L (1.1-1.4); Methemoglobin 0.6 % (0.4-1.5); Oxygen Device NC; Oxygen Saturation ABG 93.2; PO2 ABG 69.2 mmHg (80.0-100.0); Potassium Level - ABG 2.6 mmol/L (3.5-5.0); Total Hemoglobin 15.1 g/dL (12-16)
[2022-02-21] MEDS: pantoprazole DR 40 mg Tablet PO (08:45)
--- NOTE | 2022-02-21 11:16 | PC.CHAP ---
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 [] Patient/Family/Request visit [] Outpatient visit [] Follow-up visit [] Physician referral [] Code/Alert [x] Routine visit [] Staff referral [] Actively dying [x] Patient sleeping [] Family support [] [] Out of room [] Palliative care [] [] Receiving care in room [] Pre-surgical visit [] Trauma [] Long length of stay [] ICU visit [] Other: Relational/Emotional Strength [] Patient feels connected with others/family/visitors/staff [] Distress [] Loneliness/isolation [] Abandonment Spirituality of Patient [] Person of Stella [] Attends Jainism of their Stella [] Believes in Prayer [] Reads Bible or Mandaeism materials [] There are Spiritual issues to be addressed [place] Interventions [] Prayer [] Active listening [] Non-anxious presence [] Spiritual/emotional support [] Crisis/trauma care [] Spiritual counseling [] Bereavement support [] Provided bereavement packet [] Provided Bible/devotional materials [] Provided toy/stuffed animal, coloring book to patient or family member [] Provided Communion [] Anointing/[place] [] Salvation [] Completed spiritual assessment [] Other: Impact on Illness or Injury [] Angry [] Fearful [] Anxious [] Often cries [] Exhaustion [] Unable to work [] Unable to attend druze [] Unable to walk/stand [] Unable to read [] Unable to drive [] Unable to eat/drink [] Unable to sleep [] Unable to be with family [] Patient intubated [] Other: Summary Time spent with patient
--- NOTE | 2022-02-21 14:02 | PM.CONSULT ---
Providers/Reason For Consult Consulting Physician/Specialty*: Pulmonary critical care medicine Reason for Consult*: Suspicion for metastatic lung cancer Attending Physician: Alonzo Ng MD Primary Care Provider: Nhung Perkins History of Present Illness History of Present Illness Heavenly Gallardo is a 66 year old female with an extensive history of smoking. The patient has more than 50-year history of smoking with approximately 2 pack/day. The patient presented to the hospital with worsening shortness of breath yesterday. The patient tells me that the only complaint she had was worsening shortness of breath. Other than that, she denies any cough, sputum production, wheezing. The patient tells me that since they put oxygen on her even her shortness of breath is gone. As a part of the work-up, the patient underwent a CT angiogram of the chest which did not reveal any pulmonary embolism but the patient has large midsternal mass with metastases to the pleura. The patient has large tumor burden. I have reviewed the CT scan myself. The subcarinal mass is actually compressing/has invaded the right lower lobe bronchus leading to the complete atelectasis of the right lower lobe with development of pleural effusion. This could also be secondary to malignant pleural effusion. I believe there is endobronchial lesion in the right lower lobe. Currently the patient is getting treated for pneumonia. She has mildly elevated WBC count, stable kidney function, mildly elevated anion gap. Patient denies any fever, night sweats, chills. She does report orthopnea but no paroxysmal nocturnal dyspnea. Review of Systems Narrative: General: No fevers chills night sweats or fatigue Skin: No rash HEENT: No nasal congestion, rhinitis, sinusitis Neck: There is no neck swelling Respiratory: Denies any cough, sputum production, wheezing. Primary complaint is exertional shortness of breath, no hemoptysis Cardiovascular: No chest pain, positive for orthopnea, no lower extremity edema Gastrointestinal: No abdominal pain, nausea, vomiting Musculoskeletal: No joint pain or swelling, muscle weakness, no evidence of pulmonary hypertrophic osteoarthropathy Neurological: Patient is awake alert and oriented x3, no paralysis, gross motor function is normal. Psychiatric: No anxiety or depression. Medications/Allergies Home Medications Medication Instructions Recorded Confirmed Last Taken Type albuterol sulfate 90 mcg/actuation 2 puff INHALATION Q4H PRN 02/20/22 02/20/22 Unknown History aerosol inhaler aspirin 325 mg tablet 1,300 mg PO BID 02/20/22 02/20/22 02/20/22 14:30 History nldpwsa-npeiltuvgbivc-mwqwsqbo 250 2 tab PO Q6H PRN 02/20/22 02/20/22 Unknown History mg-250 mg-65 mg tablet (Excedrin Migraine) epinephrine 0.125 mg/actuation 1 puff INHALATION Q4H PRN 02/20/22 02/20/22 Unknown History aerosol inhaler (Primatene Mist) pantoprazole 40 mg tablet,delayed 40 mg PO DAILY 02/20/22 02/20/22 02/20/22 14:30 History release Allergies Allergy/AdvReac Type Severity Reaction Status Date / Time No Known Allergies Allergy Verified 02/20/22 14:27 Current Medications Generic Name Dose Route Start Last Admin Trade Name Freq PRN Reason Stop Dose Admin Acetaminophen 650 mg 02/20/22 16:50 02/21/22 06:31 Acetaminophen 325 Mg Tablet PO 650 mg Q6H PRN Administration Mild/Mod Pain Or Temp >/= 101 Enoxaparin Sodium 40 mg 02/20/22 17:00 02/20/22 17:15 Enoxaparin 40 Mg/0.4 Ml Syringe SUBCUT 40 mg Q24H LAZ Administration Ceftriaxone Sodium 1,000 mg/ 50 mls @ 100 mls/hr 02/20/22 17:00 02/20/22 20:18 Sodium Chloride IV Infused Q24H LAZ Infusion Protocol Azithromycin 500 mg/ Sodium 250 mls @ 250 mls/hr 02/20/22 17:30 02/20/22 20:19 Chloride IV Infused Q24H LAZ Infusion Protocol Pantoprazole Sodium 40 mg 02/21/22 09:00 02/21/22 08:[address] 40 Mg Tablet PO 40 mg DAILY LAZ Administration PFSH Acute PFSH: Medical History (Updated 02/21/22 @ 14:11 by Jennifer Orozco MD) Closed bicondylar fracture of right tibial plateau Surgical History S/P ORIF (open reduction internal fixation) fracture Social History Smoking and tobacco status: current every day smoker cigarettes Packs smoked per day: 2.5 Alcohol intake: never Vitals/I&O/Wt Last Vital Signs Temp 98.0 F 02/21/22 04:00 Pulse 89 02/21/22 08:31 Resp 16 02/21/22 08:31 BP 153/80 02/21/22 07:55 Pulse Ox 96 02/21/22 08:31 02/20/22 02/21/22 02/21/22 22:59 06:59 14:59 Intake Total 405 / 405 Output Total 100 / 100 360 / 460 Balance 305 / 305 -360 / -55 Weight last 48 hrs Weight 153 lb 12.8 oz Weight 153 lb Physical Exam Narrative: General: Patient is awake alert and oriented, in no distress. Sleeping in bed, arousable easily Neck: No JVD Respiratory: Inspection: Barrel-shaped chest Palpation: Trachea is mildly deviated to the right, reduced expansion in the right hemithorax Percussion: Bilateral tympanic percussion note both anterior and posteriorly Auscultation: Reduced breath sound bilaterally, no crackles wheezing or rhonchi Cardiovascular: Regular rate and rhythm, S1-S2 present, distant heart sound, no murmur, no peripheral edema. Abdomen: Soft, nontender, nondistended, positive bowel sound Musculoskeletal: No obvious joint deformity, mild clubbing in her thumb extremities Skin: No rash Neuro: Mental status is normal, no gross cranial nerve deficit, normal motor and coordination. Data : 02/20/22 15:40 02/20/22 15:40 Other data: I have reviewed her laboratory and radiologic data. A&P Assessment and plan (1) Metastatic lung cancer (metastasis from lung to other site): This is a 66-year-old lady with extensive history of smoking. The patient has more than [id number] history of smoking. She presented to the hospital with worsening shortness of breath. CT angiogram did not reveal any pulmonary embolism. The patient has near complete occlusion of the right lower lobe bronchus with atelectasis of the right lower lobe. The patient has large midsternal mass as well as evidence of metastatic disease. Given the patient's history of smoking I believe clinically this is consistent with small cell lung cancer. 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 The patient would need a tissue diagnosis. She is scheduled for bronchoscopy and EBUS tomorrow afternoon. I have discussed the risks involved with the procedure with the patient. Given the large tumor volume, the patient will benefit from early chemotherapy. She would likely be at high risk of having tumor lysis syndrome. Status: Acute (2) Emphysema lung: The patient has bilateral centrilobular emphysema. Currently there is no evidence of COPD exacerbation. Once the work-up for the possible lung cancer is completed, the patient will need further work-up as outpatient. Status: Acute (3) Pleural effusion: The right-sided pleural effusion could be malignant or secondary to right lower lobe atelectasis. The patient had an ultrasound of the chest which did not reveal any drainable fluid. We will evaluate this as outpatient as the patient progresses. Status: Acute Coding Level of Care Code Acute Certified Personal Finance Counselor for evi Leal Diagnoses Metastatic lung cancer (metastasis from lung to other site) C34.90 Emphysema lung J43.9 Pleural effusion J90
--- NOTE | 2022-02-21 15:59 | P.PN_ITS ---
Subjective Subjective: Patient was seen and examined this morning denies any significant shortness of breath, she is due for bronchoscopy with EBUS tomorrow. Medications: Medication Review Details: Generic Name Dose Route Start Last Admin Trade Name Livan PRN Reason Stop Dose Admin Acetaminophen 650 mg 02/20/22 16:50 02/21/22 06:31 Acetaminophen 32 5 Mg Tablet PO 650 mg Q6H PRN Administration Mild/Mod Pain Or Temp >/= 101 Enoxaparin Sodium 40 mg 02/20/22 17:00 02/20/22 17:15 Enoxaparin 40 Mg /0.4 Ml Syringe SUBCUT 40 mg Q24H LAZ Administration Ceftriaxone Sodium 1,000 mg/ 50 mls @ 100 mls/ hr 02/20/22 17:00 02/20/22 20:18 Sodium Chloride IV Infused Q24H LAZ Infusion Protocol Azithromycin 500 m g/ Sodium 250 mls @ 250 mls /hr 02/20/22 17:30 02/20/22 20:19 Chloride IV Infused Q24H LAZ Infusion Protocol Pantoprazole Sodiu m 40 mg 02/21/22 09:00 02/21/22 08:[address] 40 Mg Tablet PO 40 mg DAILY LAZ Administration Vitals/I&O/Wt Last Vital Signs Temp 98.0 F 02/21/22 12:00 Pulse 91 02/21/22 12:00 Resp 16 02/21/22 12:00 BP 160/89 02/21/22 12:00 Pulse Ox 95 02/21/22 12:00 02/21/22 02/21/22 02/21/22 06:59 14:59 22:59 Output Total 360 / 460 Balance -360 / -55 Weight last 48 hrs Weight 69.763 kg Weight 69.4 kg Physical Exam Const: COMMON NORMALS: patient oriented x3 HENMT: COMMON NORMALS: normocephalic and atraumatic HEAD & SCALP: normocephalic and atraumatic Eye: GENERAL EYE: appearance normal, both eyes and all related structures Chest: COMMONS NORMALS: normal inspection of the chest and normal palpation of entire chest wall CHEST: Yes Symmetrical chest wall rise Resp: COMMON NORMALS: clear to auscultation bilaterally EFFORT & INSPECTION: Yes symmetric chest movement AUSCULTATION: clear to auscultation bilaterally OTHER: Diminished air entry at rt lung base Cardio: COMMON NORMALS: regular rate, regular rhythm, S1 normal heart sound present, S2 normal heart sound present, No gallops present (Cardio), No murmurs present (Cardio), No rub (Cardio) and Peripheral pulses 2+ throughout RATE: regular rate RHYTHM: regular rhythm HEART SOUNDS: S1 normal heart sound present and S2 normal heart sound present PERIPHERAL PULSES: Peripheral pulses 2+ throughout GI: COMMON NORMALS: Normal to inspection, nondistended, normoactive bowel soun ds present, Soft to palpation, non-tender, No hepatosplenomegaly present and no masses AUSCULTATION: Yes normoactive bowel sounds PALPATION: Yes Soft to palpation and Yes No hepatosplenomegaly present RECTAL EXAM: deferred Extremity: COMMON NORMALS: no clubbing, cyanosis or edema and no pedal edema Neuro: COMMON NORMALS: patient oriented x3 Data : 02/20/22 15:40 02/20/22 15:40 A&P Assessment and plan (1) Pleural effusion: Status: Acute (2) Hypoxia: Status: Acute (3) Transaminitis: Status: Acute (4) Hypokalemia: Status: Acute Plan 66 year old female with no significant past medical history came in with chief complaint of worsening shortness of breath , orthopnea started since the November. Assessment: # right-sided malignant pleural effusion: Ultrasound chest: Failed to reveal any safe pocket for tap. Empirically on ceftriaxone azithromycin Duo nebs # Large mediastinal mass consistent with pulmonary malignancy. Likely CA lung with mets She is scheduled for bronchoscopy and EBUS Pulmonary on board #Multiple pleural based and pulmonary nodules consistent with metastatic disease. #Hepatomegaly with multiple hepatic metastatic lesions. Transaminitis: Likely secondary to hepatic mets Monitor CMP Hypokalemia CODE STATUS: Full code DVT prophylaxis: Lovenox Attestations Medical Necessity Statement*: Patient needs to be in hospital for management of above defined problems.Awaiting bronchoscopya and EBUS. Time Spent in Patient Care: Greater than 35 minutes (>than 50% of time spent in counselling and/or direct pt care on unit) . 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
[2022-02-21] MEDS: cefTRIAXone 1,000 MG in sodium chloride 0.9% (plus) 50 ML 100 MG IV (16:36)
[2022-02-21] MEDS: enoxaparin 40 mg/0.4 mL Syringe SUBCUT (17:11)
[2022-02-21] MEDS: azithromycin 500 MG in sodium chloride 0.9% 250 ML 250 MG IV (17:11)
[2022-02-21] MEDS: ondansetron 2 mg/ML SDV 2 mL 4 MG IVP (17:14)
[2022-02-21] MEDS: zolpidem 5 mg Tablet PO (20:13)
[2022-02-22] VITALS (10 sets, daily range): BP systolic 134–153; BP diastolic 80–92; PULSE 86–109; RESP 16–20; TEMP 36.1–36.8; O2SAT 92–96
[2022-02-22 06:40] LABS: Basophils # 0.1 10^3/uL (0.0-0.1); Basophils % 0.5 %; Eosinophils % 0.2 %; Hematocrit 44.6 % (37.0-47.0); Hemoglobin 14.1 g/dL (11.5-15.3); Lymphocytes % 12.2 %; Mean Corpuscular HGB Conc 31.6 g/dL (30.0-36.0); Mean Corpuscular Hemoglobin 30.7 pg (28.0-34.0); Mean Corpuscular Volume 97.2 fl (81-99); Mean Platelet Volume 9.1 fL (7.4-10.4); Monocytes # 1.4 10^3/uL (0.2-0.9); Monocytes % 8.5 %; Neutrophils # 12.42 10^3/uL (1.8-7.7); Neutrophils % 75.4 %; Nucleated Red Blood Cells % 0 %; Platelet Count 310 10^3/cmm (130-400); Red Blood Count 4.59 10^6/uL (4.1-5.3); Red Cell Distribution Width 14.2 % (12.1-15.1); White Blood Count 16.5 10^3/uL (4.0-10.0)
[2022-02-22 07:05] LABS: Alanine Aminotransferase 85 U/L (0-33); Albumin Level 3.8 g/dL (3.5-5.2); Alkaline Phosphatase 172 IU/L (35-105); Anion Gap 15.9 (5-19); Aspartate Amino Transferase 46 U/L (0-32); Blood Urea Nitrogen 13 mg/dL (8-23); Calcium 9.1 mg/dL (8.5-10.5); Carbon Dioxide 26 mmol/L (22-29); Chloride 100 mmol/L (98-107); Globulin 3.2 g/dL (1.3-4.6); Glomerular Filtration Rate 159.7 mL/min (90-130); Glucose 122 mg/dL (65-115); Osmolality Calculated 289 mOsm/kg (285-295); Sodium 139 mmol/L (136-145); Total Bilirubin 0.3 mg/dL (0.15-1.2)
[2022-02-22 07:09] LABS: Potassium 2.9 mmol/L (3.5-5.1)
[2022-02-22] MEDS: lidocaine 1% 5 ML in potassium chloride premix 100 ML 25 ML IV (08:55)
[2022-02-22] MEDS: ondansetron 2 mg/ML SDV 2 mL 4 MG IVP (09:07)
--- NOTE | 2022-02-22 11:29 | P.ANESASSM_ITS ---
Pre-Anesthetic Assessment Height/Weight: Height 1.6 m Weight 69.763 kg Temp Pulse Resp BP Pulse Ox 98.1 F 90 18 145/86 95 02/22/22 11:19 02/22/22 11:19 02/22/22 11:19 02/22/22 11:19 02/22/22 11:19 Preop Diagnosis: Right bicondylar tibial plateau fracture Operation Date: 02/22/22 12:45 Proposed Procedures p Bronchoscopy(Not Applicable) - Jennifer Orozco MD s Ebus(Not Applicable) - Jennifer Orozco MD Familial anesthetic complications: None Was Beta Chula taken within 24 hours: N/A Was Clonidine taken within 24 hours: N/A Last intake: > 8 hrs Social Tobacco and No alcohol Exam alert, oriented x 3 and regular rate & rhythm caorse breath sounds Airway Mallampati: Class II Dentition: full Pulmonary Chronic Obstructive Pulmonary Disease lung mets, mediastinal mass, no difficulty breathing with recumbent positioning, R pleural effusion CV/HEM None reported None reported Hepatic liver mets, transaminitis GI None reported Metabolic None reported Musc/skel None reported Neuropsych None reported Anesthetic Plan ASA status: 4 Anesthesia: General Risk of > 500 ml blood loss (7ml/kg in children): No Medications/Allergies Home Medications Medication Instructions Recorded Confirmed Last Taken Type albuterol sulfate 90 mcg/actuation 2 puff INHALATION Q4H PRN 02/20/22 02/20/22 Unknown History aerosol inhaler aspirin 325 mg tablet 1,300 mg PO BID 02/20/22 02/20/22 02/20/22 14:30 History wyymhqs-[id number]-pyaauqww 250 2 tab PO Q6H PRN 02/20/22 02/20/22 Unknown History mg-250 mg-65 mg tablet (Excedrin Migraine) epinephrine 0.125 mg/actuation 1 puff INHALATION Q4H PRN 02/20/22 02/20/22 Unknown History aerosol inhaler (Primatene Mist) pantoprazole 40 mg tablet,delayed 40 mg PO DAILY 02/20/22 02/20/22 02/20/22 14:30 History release Allergies Allergy/AdvReac Type Severity Reaction Status Date / Time No Known Allergies Allergy Verified 02/20/22 14:27 Current Medications Generic Name Dose Route Start Last Admin Trade Name Freq PRN Reason Stop Dose Admin Acetaminophen 650 mg 02/20/22 16:50 02/21/22 16:37 Acetaminophen 325 Mg Tablet PO 650 mg Q6H PRN Administration Mild/Mod Pain Or Temp >/= 101 Enoxaparin Sodium 40 mg 02/20/22 17:00 02/21/22 17:11 Enoxaparin 40 Mg/0.4 Ml Syringe SUBCUT 40 mg Q24H LAZ Administration Ceftriaxone Sodium 1,000 mg/ 50 mls @ 100 mls/hr 02/20/22 17:00 02/21/22 17:22 Sodium Chloride IV Infused Q24H LAZ Infusion Protocol Azithromycin 500 mg/ Sodium 250 mls @ 250 mls/hr 02/20/22 17:30 02/21/22 18:11 Chloride IV Infused Q24H LAZ Infusion Protocol Lidocaine HCl 5 ml/ Potassium 105 mls @ 25 mls/hr 02/22/22 07:30 02/22/22 08:55 Chloride IV 02/22/22 11:41 25 mls/hr ONCE ONE Administration Ondansetron HCl 4 mg 02/20/22 16:50 02/22/22 09:07 Ondansetron 2 Mg/Ml Sdv 2 Ml IVP 4 mg Q8H PRN Administration vomiting, or N/V if npo Pantoprazole Sodium 40 mg 02/21/22 09:00 02/22/22 08:[address] 40 Mg Tablet PO Not Given DAILY [facility] Additional Medication Information Generic Name Dose Route Start Last Admin Trade Name Freq PRN Reason Stop Dose Admin Acetaminophen 650 mg 02/20/22 16:50 02/21/22 06:31 Acetaminophen 325 Mg Tablet PO 650 mg Q6H PRN Administration Mild/Mod Pain Or Temp >/= 101 Enoxaparin Sodium 40 mg 02/20/22 17:00 02/20/22 17:15 Enoxaparin 40 Mg/0.4 Ml Syringe SUBCUT 40 mg Q24H LAZ Administration Ceftriaxone Sodium 1,000 mg/ 50 mls @ 100 mls/hr 02/20/22 17:00 02/20/22 20:18 Sodium Chloride IV Infused Q24H LAZ Infusion Protocol Azithromycin 500 mg/ Sodium 250 mls @ 250 mls/hr 02/20/22 17:30 02/20/22 20:19 Chloride IV Infused Q24H LAZ Infusion Protocol Pantoprazole Sodium 40 mg 02/21/22 09:00 02/21/22 08:[address] 40 Mg Tablet PO 40 mg DAILY LAZ Administration [facility] Anesthesia Medical History (Updated 02/21/22 @ 14:11 by Jennifer Orozco MD) Closed bicondylar fracture of right tibial plateau Surgical History S/P ORIF (open reduction internal fixation) fracture Social History Smoking and tobacco status: current every day smoker cigarettes Packs smoked per day: 2.5 Alcohol intake: never Data Anesthesia : 02/22/22 05:55 02/22/22 05:55 Short CBC 02/20/22 02/22/22 Range/Units 15:40 05:55 WBC 20.5 H 16.5 H (4.0-10.0) 10^3/uL Hgb 16.2 H 14.1 (11.5-15.3) g/dL Hct 47.9 H 44.6 (37.0-47.0) % MCV 92.5 97.2 (81-99) fl Plt Count 358 310 (130-400) 10^3/cmm Neut % (Auto) 80.5 75.4 % Neut # (Auto) 16.49 H 12.42 H (1.8-7.7) 10^3/uL BMP 02/20/22 02/22/22 15:40 05:55 Sodium 138 139 Potassium 3.3 L 2.9 L Chloride 95 L 100 Carbon Dioxide 25 26 BUN 21 13 Creatinine 0.7 0.4 L Glucose 223 H 122 H Calcium 10.3 9.1 Cardiac Enzymes 02/20/22 02/20/22 02/20/22 Range/Units 15:40 15:40 18:34 Creatine Kinase 56 (26-192) U/L Troponin T Baseline 12 H (0-10) ng/L Troponin T 120 Minute 10.92 H (0-10) ng/L Delta Troponin T -1.08 L (0-10) ABS# Liver Function 02/20/22 02/22/22 Range/Units 15:40 05:55 Total Bilirubin 0.3 0.3 (0.15-1.2) mg/dL AST 65 H 46 H (0-32) U/L ALT 80 H 85 H (0-33) U/L Alkaline Phosphatase 231 H 172 H (35-105) IU/L Albumin 4.9 3.8 (3.5-5.2) g/dL Urine 02/20/22 Range/Units 15:20 Urine Color Denise (Yellow) Urine Appearance Clear (CLEAR) Urine pH 5 (5-7) Ur Specific Griffin 1.015 (1.005-1.030) Urine Protein 1+ H (Negative) Urine Glucose (UA) Trace H (Normal) Urine Ketones 1+ H (Negative) Urine Nitrate Negative (Negative) Urine Bilirubin 2+ H (Negative) Ur Leukocyte Esterase Negative (Negative) Urine RBC 0-4 H (0-2) /hpf Urine WBC 0-4 H (0-5) /hpf ABG 02/20/22 14:45 Specimen Type Arterial Sample Site Radial, left ABG pH 7.53 H ABG pCO2 30.9 L ABG pO2 69.2 L ABG HCO3 25.6 ABG O2 Saturation 93.2 ABG Base Excess 3.5 H A-a O2 Gradient 11.6 H O2 Delivery Device Nc O2 Liters/Min 2.0 FiO2 28.0 Microbiology 02/22/22 05:55 Blood Culture - Preliminary Blood SPECIMEN COLLECTED Cardiac Studies: Echocardiogram 02/20/22
[2022-02-22] MEDS: sodium chloride 0.9% 1,000 ML 30 ML IV (12:00)
[2022-02-22] MEDS: lidocaine 1% INJ 20 mL XX (12:42)
--- NOTE | 2022-02-22 13:25 | PM.OP ---
Operative Report Date of procedure: February 22, 2022 Pre-op diagnosis: Preop Diagnosis suspected lung cancer Brief History: This is a 66-year-old lady who presented to the hospital with worsening shortness of breath. CT angiogram revealed large mediastinal mass with suspicion for metastatic lung cancer. Procedure: Name of the procedure: Bronchoscopy with inspection of the airway, possible bronchoalveolar lavage, endobronchial biopsies, transbronchial biopsies, endobronchial ultrasound-guided transbronchial needle aspiration of lymph nodes and control of bleeding. Indication: Mediastinal mass concerning for metastatic lung cancer Anesthesia: General anesthesia. Local anesthesia: The vocal cords, trachea, perfecto in the right and left mainstem bronchi were anesthetized with 1% lidocaine, 7 mL. Description of the procedure: The procedure was explained to the patient and the consent was obtained. The patient was brought to the OR. The patient underwent a laryngeal mask airway placement for general anesthesia. Following induction of general anesthesia, the bronchoscope was advanced through the LMA. The vocal cords appeared to be normal. There is a patch of whitish area in front of the epiglottis. The vocal cords were incised with 1% lidocaine. The bronchoscope was introduced through the vocal cords. There is mild erythema in the upper and lower trachea. Upper and lower trachea were anesthetized with 1% lidocaine. The perfecto was splayed. The perfecto, right and left mainstem bronchi anesthetized with 1% lidocaine. In a systematic manner bilateral bronchial tree was then examined. The bronchoscope was advanced into the left mainstem bronchus. The left upper lobe, lingula and left lower lobe bronchi were examined up to the third subsegmental level and no abnormalities were identified. There was no endobronchial lesion, active bleeding or mucous plug. The bronchoscope was then introduced into the right mainstem bronchus. The right upper lobe bronchus was normal. The right upper lobe was examined up to the third subsegmental level. No abnormalities were identified. Mucosal growth was noted in the right bronchus intermedius. The mucosal growth led to at least 85 to 90% blockage of the right bronchus intermedius. Hypervascular irregular lesion suspicious for malignancy was seen. I was not able to pass the bronchoscope beyond the occlusion. I also did not attempt as there was a risk for bleeding. Endobronchial biopsies were obtained from the right bronchus intermedius mass. Multiple samples were obtained. There was mild bleeding after the endobronchial biopsies. The endobronchial ultrasound was introduced through the LMA. Mediastinal and hilar lymphadenopathy was identified with the ultrasound. Fine-needle aspiration was performed from station 7 lymph node. Samples: 1. Endobronchial biopsies are sent for histopathology. 2. The transbronchial needle aspiration of the aforementioned lymph node station was sent for histopathology. Complications: There was no immediate complications. There is no significant bleeding after the procedure. Rapid onsite evaluation: The endobronchial biopsies were suspicious for small cell lung cancer according to pathology read.
--- NOTE | 2022-02-22 14:07 | ANE.PACU2 ---
Inpatient post-anesthesia follow up: Airway intact: Yes Vital signs: Temperature 97.0 F Pulse Rate 101 Respiratory Rate 18 Blood Pressure 138/80 Pulse Oximetry 93 Oxygen Delivery Me thod [ Nasal Cannula Current Rate & Del bre] Oxygen Delivery Me thod Nasal Cannula Oxygen Flow Rate [ Current Rate 3 & Delivery] Oxygen Flow Rate 4 Fraction of Inspir ed Oxygen Hydration adequate: Yes Nausea and vomiting: No Pain level: 1 Mental status: Baseline
--- NOTE | 2022-02-22 17:48 | P.PN_ITS ---
Subjective Subjective: Patient was seen and examined this morning denies any significant shortness of breath, she is due for bronchoscopy with EBUS Medications: Medication Review Details: Generic Name Dose Route Start Last Admin Trade Name Livan PRN Reason Stop Dose Admin Acetaminophen 650 mg 02/20/22 16:50 02/21/22 06:31 Acetaminophen 32 5 Mg Tablet PO 650 mg Q6H PRN Administration Mild/Mod Pain Or Temp >/= 101 Enoxaparin Sodium 40 mg 02/20/22 17:00 02/20/22 17:15 Enoxaparin 40 Mg /0.4 Ml Syringe SUBCUT 40 mg Q24H LAZ Administration Ceftriaxone Sodium 1,000 mg/ 50 mls @ 100 mls/ hr 02/20/22 17:00 02/20/22 20:18 Sodium Chloride IV Infused Q24H LAZ Infusion Protocol Azithromycin 500 m g/ Sodium 250 mls @ 250 mls /hr 02/20/22 17:30 02/20/22 20:19 Chloride IV Infused Q24H LAZ Infusion Protocol Pantoprazole Sodiu m 40 mg 02/21/22 09:00 02/21/22 08:[address] 40 Mg Tablet PO 40 mg DAILY LAZ Administration Vitals/I&O/Wt Last Vital Signs Temp 97.0 F L 02/22/22 13:15 Pulse 101 H 02/22/22 13:25 Resp 18 02/22/22 13:25 BP 138/80 02/22/22 13:25 Pulse Ox 93 02/22/22 13:25 02/22/22 02/22/22 02/22/22 06:59 14:59 22:59 Intake Total 0 / 300 505 / 505 Output Total 0 / 0 Balance 0 / 300 505 / 505 Weight last 48 hrs Weight 69.763 kg Physical Exam Const: COMMON NORMALS: patient oriented x3 HENMT: COMMON NORMALS: normocephalic and atraumatic HEAD & SCALP: normocephalic and atraumatic Eye: GENERAL EYE: appearance normal, both eyes and all related structures Chest: COMMONS NORMALS: normal inspection of the chest and normal palpation of entire chest wall CHEST: Yes Symmetrical chest wall rise Resp: COMMON NORMALS: clear to auscultation bilaterally EFFORT & INSPECTION: Yes symmetric chest movement AUSCULTATION: clear to auscultation bilaterally OTHER: Diminished air entry at rt lung base Cardio: COMMON NORMALS: regular rate, regular rhythm, S1 normal heart sound present, S2 normal heart sound present, No gallops present (Cardio), No murmurs present (Cardio), No rub (Cardio) and Peripheral pulses 2+ throughout RATE: regular rate RHYTHM: regular rhythm HEART SOUNDS: S1 normal heart sound present and S2 normal heart sound present PERIPHERAL PULSES: Peripheral pulses 2+ throughout GI: COMMON NORMALS: Normal to inspection, nondistended, normoactive bowel so unds present, Soft to palpation, non-tender, No hepatosplenomegaly present and no masses AUSCULTATION: Yes normoactive bowel sounds PALPATION: Yes Soft to palpation and Yes No hepatosplenomegaly present RECTAL EXAM: deferred Extremity: COMMON NORMALS: no clubbing, cyanosis or edema and no pedal edema Neuro: COMMON NORMALS: patient oriented x3 Data : 02/22/22 05:55 02/22/22 05:55 Micro: Microbiology 02/22/22 05:55 Blood Culture - Preliminary Blood SPECIMEN COLLECTED A&P Assessment and plan (1) Pleural effusion: Status: Acute (2) Hypoxia: Status: Acute (3) Transaminitis: Status: Acute (4) Hypokalemia: Status: Acute Plan 66 year old female with no significant past medical history came in with chief complaint of worsening shortness of breath , orthopnea started since the November. Assessment: # right-sided malignant pleural effusion: Ultrasound chest: Failed to reveal any safe pocket for tap. Empirically on ceftriaxone azithromycin Duo nebs # Large mediastinal mass consistent with pulmonary malignancy. Likely CA lung with mets She is scheduled for bronchoscopy and EBUS Pulmonary on board #Multiple pleural based and pulmonary nodules consistent with metastatic disease. #Hepatomegaly with multiple hepatic metastatic lesions. 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
[2022-02-23] VITALS: BP 132/74; PULSE 79; RESP 17; TEMP 36.6; O2SAT 92
[2022-02-23 04:00] VITALS: BP 150/87; PULSE 111; RESP 18; O2SAT 84
--- NOTE | 2022-02-23 04:42 | PC.NURSE ---
i reported to nurse o2 was low at 84 and tried getting pt to but it back on she said the hell with it im not putting it on
[2022-02-23 05:28] VITALS: PULSE 99
[2022-02-23 06:01] LABS: Basophils # 0.1 10^3/uL (0.0-0.1); Basophils % 0.4 %; Eosinophils % 0.1 %; Hematocrit 43.8 % (37.0-47.0); Hemoglobin 14.4 g/dL (11.5-15.3); Lymphocytes # 1.8 10^3/uL (0.8-4.8); Lymphocytes % 9.7 %; Mean Corpuscular HGB Conc 32.9 g/dL (30.0-36.0); Mean Corpuscular Hemoglobin 30.8 pg (28.0-34.0); Mean Corpuscular Volume 93.6 fl (81-99); Mean Platelet Volume 8.9 fL (7.4-10.4); Monocytes # 1.5 10^3/uL (0.2-0.9); Monocytes % 7.8 %; Neutrophils # 15.09 10^3/uL (1.8-7.7); Neutrophils % 79.7 %; Nucleated Red Blood Cells % 0 %; Platelet Count 319 10^3/cmm (130-400); Red Blood Count 4.68 10^6/uL (4.1-5.3); Red Cell Distribution Width 13.9 % (12.1-15.1); White Blood Count 18.9 10^3/uL (4.0-10.0)
[2022-02-23 06:21] LABS: Alanine Aminotransferase 77 U/L (0-33); Albumin Level 3.8 g/dL (3.5-5.2); Alkaline Phosphatase 175 IU/L (35-105); Anion Gap 17.5 (5-19); Aspartate Amino Transferase 49 U/L (0-32); Blood Urea Nitrogen 15 mg/dL (8-23); Calcium 9.2 mg/dL (8.5-10.5); Carbon Dioxide 26 mmol/L (22-29); Chloride 100 mmol/L (98-107); Globulin 3.1 g/dL (1.3-4.6); Glomerular Filtration Rate 123.4 mL/min (90-130); Glucose 116 mg/dL (65-115); Osmolality Calculated 292 mOsm/kg (285-295); Potassium 3.5 mmol/L (3.5-5.1); Sodium 140 mmol/L (136-145); Total Bilirubin 0.4 mg/dL (0.15-1.2); Total Protein 6.9 g/dL (6.6-8.7)
[2022-02-23 07:30] VITALS: BP 134/88; PULSE 108; RESP 16; TEMP 36.6; O2SAT 91
[2022-02-23 08:27] VITALS: PULSE 127; RESP 22; O2SAT 87
--- NOTE | 2022-02-23 09:14 | PM.DCS ---
Discharge Providers Date of Admission: 02/20/22 16:50 Date of Discharge: February 23, 2022 Attending Provider at Admission: Alonzo Ng MD Attending Provider at Discharge: Alonzo Ng MD Primary Care Provider: Nhung Perkins Diagnoses at Discharge Discharge Diagnosis (1) Pleural effusion: Status: Acute (2) Hypoxia: Status: Acute (3) Transaminitis: Status: Acute (4) Hypokalemia: Status: Acute Reason for Visit Reason for Visit: sent to ER per Sandip Macias? Hospital Course Hospital Course Heavenly Gallardo is a 66 year old female with no significant past medical history chronic smoking has smoked close to 2 packs of cigarettes daily form age 15 ,came in with chief complaint of worsening shortness of breath , orthopnea started since the November, she denies any chest pain, fever ,? cough , runny nose , nausea vomiting. Upon arrival in the ER she was worked up for abdominal complaint: Pertinent imaging studies: X-ray chest: Moderate right-sided pleural effusion CTA chest: Negative for pulmonary embolism. Large mediastinal mass consistent with pulmonary malignancy. Multiple pleural based and pulmonary nodules consistent with metastatic disease. Right lower lobe pleural effusion. Atelectasis with collapse in the posterior right lower lobe.? Hepatomegaly with multiple hepatic metastatic lesions. Benign cyst left kidney. Negative for right heart strain . Diffuse emphysematous changes in both lungs. Pertinent labs: WBC : 20.5 , H&H:16/47 , PLT : 358 , Serum sodium 138 serum potassium 3.3 , BUN /? serum creatinine 21/? 0.7 , random blood sugar 223 , AST 65 ALT 80 ALP 231 Troponin trend:12, 10, During the hospital stay she was managed for acute onset of dyspnea: Likely secondary to small cell CA lung Large mediastinal mass, low clinical suspicion for pneumonia, small right pleural effusion, COPD. Patient underwent Bronchoscopy with inspection of the airway, possible bronchoalveolar lavage, endobronchial biopsies, transbronchial biopsies, endobronchial ultrasound-guided transbronchial needle aspiration of lymph nodes, pathology report so far is consistent with small cell lung cancer . She was empirically kept on antibiotics, and is being discharged on levofloxacin for additional 7 days for possible underlying pneumonia. Blood cultures were negative. Large mediastinal mass is likely metastatic disease from small cell lung cancer.Hepatomegaly with multiple hepatic metastatic lesions. Transaminitis:?Likely secondary to hepatic mets. Right-sided pleural effusion likely malignant or possibly secondary reabsorption atelectasis secondary to bronchial obstruction. Patient responded well to above medical management and is being discharged in stable condition to home stable continue to follow pulmonary as well as primary care physician as outpatient. Physical Exam Const: COMMON NORMALS: patient oriented x3 HENMT: COMMON NORMALS: normocephalic, atraumatic, hearing grossly normal bilaterally and external ears normal HEAD & SCALP: normocephalic and atraumatic EXTERNAL EAR: Yes external ears normal Eye: COMMON NORMALS: no scleral icterus GENERAL EYE: appearance normal, both eyes and all related structures Chest: COMMONS NORMALS: normal inspection of the chest and normal palpation of entire chest wall CHEST: Yes Symmetrical chest wall rise Resp: COMMON NORMALS: normal respiratory effort, No retractions, No use of accessory muscles and clear to auscultation bilaterally EFFORT & INSPECTION: Yes symmetric chest movement AUSCULTATION: clear to auscultation bilaterally OTHER: Diminished air entry at rt lung base Cardio: COMMON NORMALS: regular rate, regular rhythm, S1 normal heart sound present, S2 normal heart sound present, No gallops present (Cardio), No murmurs present (Cardio), No rub (Cardio) and Peripheral pulses 2+ throughout RATE: regular rate RHYTHM: regular rhythm HEART SOUNDS: S1 normal heart sound present and S2 normal heart sound present PERIPHERAL PULSES: Peripheral pulses 2+ throughout GI: COMMON NORMALS: Normal to inspection, nondistended, normoactive bowel sounds present, Soft to palpation, non-tender, No hepatosplenomegaly present and no masses AUSCULTATION: Yes normoactive bowel sounds PALPATION: Yes Soft to palpation and Yes No hepatosplenomegaly present RECTAL EXAM: deferred Extremity: COMMON NORMALS: no clubbing, cyanosis or edema and no pedal edema Neuro: COMMON NORMALS: patient oriented x3 Discharge Data Studies Completed and Pending Completed Studies During Hospitalization Category Date Time Status CT angio chest PE protcl [id number] Stat Cat Scan 02/20/22 15:23 Completed XR chest 1V portable [id number] Stat Exams 02/20/22 14:32 Completed Cytology [PTH] Routine Pth 02/22/22 12:53 Completed CV. echo complete* [id number] Routine Ultrasound 02/20/22 17:34 Completed US chest [id number] Urgent Ultrasound 02/20/22 18:57 Completed Pending at discharge Category Date Time Status Blood Culture Routine Lab 02/21/22 06:00 Results Pathology: Surgical [PTH] Routine Pth 02/22/22 13:15 Received Radiology Impressions Chest X-Ray 02/20/22 14:32 IMPRESSION: 1. Right lower lobe pleural effusion 2. Otherwise No acute findings. Chest CTA 02/20/22 15:23 IMPRESSION: 1. Negative for pulmonary embolism. 2. Large mediastinal mass consistent with pulmonary malignancy. 3. Multiple pleural based and pulmonary nodules consistent with metastatic disease. 4. Right lower lobe pleural effusion. 5. Atelectasis with collapse in the posterior right lower lobe. 6. Hepatomegaly with multiple hepatic metastatic lesions. 7. Benign cyst left kidney 8. Negative for right heart strain 9. Diffuse emphysematous changes in both lungs. Chest Ultrasound 02/20/22 18:57 IMPRESSION: No pleural effusions identified. Laboratory Results WBC 18.9 10^3/uL (4.0-10.0) H 02/23/22 05:45 RBC 4.68 10^6/uL (4.1-5.3) 02/23/22 05:45 Hgb 14.4 g/dL (11.5-15.3) 02/23/22 05:45 Hct 43.8 % (37.0-47.0) 02/23/22 05:45 MCV 93.6 fl (81-99) 02/23/22 05:45 MCH 30.8 pg (28.0-34.0) 02/23/22 05:45 MCHC 32.9 g/dL (30.0-36.0) 02/23/22 05:45 RDW 13.9 % (12.1-15.1) 02/23/22 05:45 Plt Count 319 10^3/cmm (130-400) 02/23/22 05:45 MPV 8.9 fL (7.4-10.4) 02/23/22 05:45 Neut % (Auto) 79.7 % 02/23/22 05:45 Lymph % (Auto) 9.7 % 02/23/22 05:45 Rice % (Auto) 7.8 % 02/23/22 05:45 Eos % (Auto) 0.1 % 02/23/22 05:45 Baso % (Auto) 0.4 % 02/23/22 05:45 Neut # (Auto) 15.09 10^3/uL (1.8-7.7) H 02/23/22 05:45 Lymph # (Auto) 1.8 10^3/uL (0.8-4.8) 02/23/22 05:45 Rice # (Auto) 1.5 10^3/uL (0.2-0.9) H 02/23/22 05:45 Eos # (Auto) 0.0 10^3/uL (0.0-0.8) 02/23/22 05:45 Baso # (Auto) 0.1 10^3/uL (0.0-0.1) 02/23/22 05:45 Nucleated RBC % (auto) 0 % 02/23/22 05:45 Nucleated RBCs # 0.0 /100WBC 02/23/22 05:45 Specimen Type Arterial 02/20/22 14:45 Sample Site Radial, left 02/20/22 14:45 ABG pH 7.53 (7.35-7.45) H 02/20/22 14:45 ABG pCO2 30.9 mmHg (35-45) L 02/20/22 14:45 ABG pO2 69.2 mmHg (80.0-100.0) L 02/20/22 14:45 ABG HCO3 25.6 mmol/L (22-26) 02/20/22 14:45 ABG O2 Saturation 93.2 02/20/22 14:45 ABG Base Excess 3.5 mmol/L (-2.0-2.0) H 02/20/22 14:45 Anant Test Pos 02/20/22 14:45 A-a O2 Gradient 11.6 mmHg (5-10) H 02/20/22 14:45 Hematocrit 46.3 % (37-47) 02/20/22 14:45 Hgb O2 Saturation 91.9 % (95-100) L 02/20/22 14:45 Carboxyhemoglobin 0.8 %THgb (0.4-20.1) 02/20/22 14:45 Methemoglobin 0.6 % (0.4-1.5) 02/20/22 14:45 Total Hemoglobin 15.1 g/dL (12-16) 02/20/22 14:45 Sodium 139.0 mmol/L (131-143) 02/20/22 14:45 Potassium 2.6 mmol/L (3.5-5.0) L 02/20/22 14:45 Glucose 300.0 mg/dL (70-115) H 02/20/22 14:45 Ionized Calcium 1.2 mmol/L (1.1-1.4) 02/20/22 14:45 O2 Delivery Device Nc 02/20/22 14:45 O2 Liters/Min 2.0 % 02/20/22 14:45 FiO2 28.0 % 02/20/22 14:45 Computer Publisher ID Ed 02/20/22 14:45 Sodium 140 mmol/L (136-145) 02/23/22 05:45 Potassium 3.5 mmol/L (3.5-5.1) 02/23/22 05:45 Chloride 100 mmol/L (98-107) 02/23/22 05:45 Carbon Dioxide 26 mmol/L (22-29) 02/23/22 05:45 Anion Gap 17.5 (5-19) 02/23/22 05:45 BUN 15 mg/dL (8-23) 02/23/22 05:45 Creatinine 0.5 mg/dL (0.5-0.9) 02/23/22 05:45 GFR Calculation 123.4 mL/min (90-130) 02/23/22 05:45 Glucose 116 mg/dL (65-115) H 02/23/22 05:45 Calculated Osmolality 292 mOsm/kg (285-295) 02/23/22 05:45 Calcium 9.2 mg/dL (8.5-10.5) 02/23/22 05:45 Total Bilirubin 0.4 mg/dL (0.15-1.2) 02/23/22 05:45 AST 49 U/L (0-32) H 02/23/22 05:45 ALT 77 U/L (0-33) H 02/23/22 05:45 Alkaline Phosphatase 175 IU/L (35-105) H 02/23/22 05:45 Creatine Kinase 56 U/L (26-192) 02/20/22 15:40 Troponin T Baseline 12 ng/L (0-10) H 02/20/22 15:40 Troponin T 120 Minute 10.92 ng/L (0-10) H 02/20/22 18:34 Delta Troponin T -1.08 ABS# (0-10) L 02/20/22 18:34 Total Protein 6.9 g/dL (6.6-8.7) 02/23/22 05:45 Albumin 3.8 g/dL (3.5-5.2) 02/23/22 05:45 Globulin 3.1 g/dL (1.3-4.6) 02/23/22 05:45 Urine Color Denise (Yellow) 02/20/22 15:20 Urine Appearance Clear (CLEAR) 02/20/22 15:20 Urine pH 5 (5-7) 02/20/22 15:20 Ur Specific [place] 1.015 (1.005-1.030) 02/20/22 15:20 Urine Protein 1+ (Negative) H 02/20/22 15:20 Urine Glucose (UA) Trace (Normal) H 02/20/22 15:20 Urine Ketones 1+ (Negative) H 02/20/22 15:20 Urine Blood Trace (Negative) H 02/20/22 15:20 Urine Nitrate Negative (Negative) 02/20/22 15:20 Urine Bilirubin 2+ (Negative) H 02/20/22 15:20 Urine Urobilinogen 1 mg/dL (Negative) H 02/20/22 15:20 Ur Leukocyte Esterase Negative (Negative) 02/20/22 15:20 Urine RBC 0-4 /hpf (0-2) H 02/20/22 15:20 Urine WBC 0-4 /hpf (0-5) H 02/20/22 15:20 Ur Squamous Epith Cells 0-4 /hpf (0-5) H 02/20/22 15:20 Amorphous Sediment Not Reportable 02/20/22 15:20 Urine Bacteria Trace /hpf (NONE) 02/20/22 15:20 Hyaline Casts 0-4 /lpf H 02/20/22 15:20 Urine Mucus 2+ /hpf 02/20/22 15:20 Vitals Last Vital Signs Temp 97.8 F 02/23/22 07:30 Pulse 127 H 02/23/22 08:27 Resp 22 H 02/23/22 08:27 BP 134/88 02/23/22 07:30 Pulse Ox 87 L 02/23/22 08:27 Discharge Plan Discharge Patient Disposition: Home Condition: Stable Prescriptions: New levofloxacin 750 mg tablet 750 mg PO DAILY 7 Days Qty: 7 0RF Continued pantoprazole 40 mg tablet,delayed release (DR/EC) 40 mg PO DAILY 0RF albuterol sulfate 90 mcg/actuation HFA aerosol inhaler 2 puff INHALATION Q4H PRN (Reason: Shortness Of Breath) 0RF Excedrin Migraine 250-250-65 mg Tablet 2 tab PO Q6H PRN (Reason: Migraine Headache) 0RF Primatene Mist 0.125 mg/actuation Hfa Aerosol Inhaler 1 puff INHALATION Q4H PRN (Reason: asthma) 0RF Rx Instructions: may repeat once after 1 minute; do not exceed 8 inhalations per 24 hrs aspirin 325 mg tablet 1,300 mg PO BID 0RF Discharge Orders: Discharge Order (Routine); Ordered 02/23/22 Ordered By: Alonzo Ng Referrals: Nhung Perkins PA [Primary Care Provider] - 03/01/22 8:30 am Jennifer Orozco MD [Physician] - 03/02/22 10:30 am Discharge Diet: Regular Discharge Activity: Resume usual activity Patient Instructions: Opioid Safety Discharge Attestations Time Spent in Discharge Care*: less than 30 min Specific Discharge Activities: educating patient, educating and/or supporting family/caregiver, discussing with pcp/other providers, discussing with case finisher/social workers/dc planners, documenting/other paperwork and evaluating patient/reviewing data Quality Metrics Clinical Quality Measures [ No reported AMI, CVA or VTE this stay] Coding Level of Care Code Acute Chg FW DC note Diagnoses Pleural effusion J90 Hypoxia R09.02 Transaminitis R74.01 Hypokalemia E87.6
--- NOTE | 2022-02-23 09:27 | PC.SOCIAL ---
IMM update IMM updated with patient. Verbalized an understanding. Copy Pg 2 provided. Initialled, dated, timed, and placed in chart.
--- NOTE | 2022-02-23 10:29 | PC.NURSE ---
Pt refusing to wear oxygen this morning. O2 sats mid/upper 80's on room air. Education provided reguarding normal oxygen levels. At discharge patient didn't have oxygen set up, and states they were setting this up at home. Pt refusing to wait for O2 set up to wear home.
--- NOTE | 2022-02-23 13:10 | PC.SOCIAL ---
Patient discharge prior to home o2 eval being done. Patient has stated previously that her PCP was setting up her oxygen for her.
[2022-03-02 11:50] LABS: Miscellaneous Test See Scanned Lab Rpt
== END 2022-02-23 10:34 | disposition home or self-care (01) | DRG 180 ==
LOC: ER 19:15 → MEDSURG 19:31
PROVIDERS: Internal Medicine Critical Care Medicine; Admitting Provider Internal Medicine; Emergency Provider Family Medicine; PCP Physician Assistant; Visit Provider Internal Medicine
PROC: 0BJ08ZZ Inspection of Tracheobronchial Tree, Via Natural or Artificial Opening Endoscopic (ICD-10-PCS; CPT 31622; principal; 2022-02-22 12:30)
PROC: BB4BZZZ Ultrasonography of Pleura (ICD-10-PCS; 2022-02-22 12:30)
DX: C34.31 Malignant neoplasm of lower lobe, right bronchus or lung (principal); J18.9 Pneumonia, unspecified organism; C78.7 Secondary malignant neoplasm of liver and intrahepatic bile duct; C77.1 Secondary and unspecified malignant neoplasm of intrathoracic lymph nodes; C78.2 Secondary malignant neoplasm of pleura; J91.0 Malignant pleural effusion; J43.2 Centrilobular emphysema; F17.210 Nicotine dependence, cigarettes, uncomplicated; E87.6 Hypokalemia
CPT/HCPCS: 31625; 31652; 36415; 36600; 71045; 71275; 76604; 80051; 80053; 80503; 81001; 82330; 82550; 82805; 84484; 85025; 87040; 88305; 88342; 93005; 93306; 94640; 96365; 96366; 96367; 96372; 99285; J0456; J0696; J1650; J2405; J2930; J3480; J7030; J7050; Q9967

== ENCOUNTER 2022-03-06 11:47 | Outpatient (CLI) | payer MEDICARE, SELFPAY ==
--- NOTE | 2022-03-06 18:06 | ONC CON_ITS ---
Dr. Thomson New Patient Note Patient: Heavenly Gallardo Unit #: [id number]: 1955 Dicatated By: Jacob Thomson M.D.Date of Visit: Mar 06, 2022 Onc MED New Patient/Consult Referring Physician: Dr. JANNY DAY M.D. Chief Complaint: Lung cancer. 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 On 02/20/2022 she was admitted to the hospital after presenting to the emergency room with increasing shortness of breath. Her CT pulmonary angiogram was negative for pulmonary embolism. However, it did show multiple mass lesions in the mediastinum including a right paratracheal mass measuring 17 x 20 x 45 mm, a precarinal mass measuring 39 x 20 mm, and a subcarinal mass measuring 37 x 43 mm. A right hilar mass measured 43 x 30 mm. Also noted was a mass measuring 50 x 54 mm in the right lower lobe consistent with primary malignancy. There were additional pleural-based masses in both lungs. There was evidence of collapsed right lower lobe and there was a large right lower lobe pleural effusion. There was hepatomegaly with evidence for multiple hepatic metastatic lesions. She had underwent bronchoscopy/EBUS on 02/22/2022. The bronchoscopy showed 85 to 90% occlusion of the right bronchus intermedius by a hypervascular malignant appearing lesion. Endobronchial biopsies from the right bronchus intermedius showed small cell carcinoma. EBUS with FNA biopsy of station 7 lymph node was positive for metastatic small cell carcinoma. She is seen now for further management. She says she is feeling terrible. She is very weak generally, and she has very limited activity. She has been sleeping all the time. Her ECOG score is 3. Her appetite and oral intake have been poor. She has not had fever. She sometimes has sweating. She has not had sore throat, hoarseness, or difficulty swallowing. She does complain of cough and she is short of breath to the point that she cannot do anything. She has not had chest pain or hemoptysis. She has been having a lot of nausea. She sometimes has acid reflux. She has diarrhea, that is chronic. She has urinary frequency and nocturia. She has been having a lot of pain, mainly in the back and shoulders. She has been having headache frequently, and she also complains of dizziness. She has no numbness/paresthesia or other focal neurologic symptoms. She recently developed swelling in her left leg. Past Medical History: Her medical history includes chronic obstructive pulmonary disease and degenerative disease of the spine. Past Surgical History: Her only other surgery was an ORIF for a right bicondylar tibial plateau fracture in December 2019. Medications: Albuterol Sulfate 2 Inhalation (of 108 (90 base) mcg/act) Aerosol Powder, Breath Activated Inhalation four times a day PRN, Dexamethasone 1 Tablet (of 4 mg) Oral b.i.d., levoFLOXacin 1 Tablet (of 750 mg) Oral daily for 7 days, Pantoprazole Sodium 1 Tablet (of 40 mg) Tablet, enteric coated Oral daily Allergies: No Known Allergies. Social History: Ms. Gallardo is . She has a significant other. She has a history of smoking 2 packs of cigarettes daily since age 15. She has a history of heavy alcohol use, but she quit drinking about 5 years ago. Family History: Father at age 93. Mother of stroke at age 75. A sister at age 76, apparently of alcohol-related problems, and a son of alcohol poisoning. Review Of Symptoms: Constitutional - She has been feeling terrible. She is very weak and she has very limited activity. Appetite and oral intake have been poor. She has not had fever. She sometimes has sweating. ECOG score is 3, Eyes - No change in vision, ENMT - She has hearing loss. No sinus congestion/drainage. No mouth sores. No sore throat or difficulty swallowing, Hematologic/Lymphatic - She has had some bruising, Respiratory - She has shortness of breath and cough.. No pleuritic pain or hemoptysis, Cardiovascular - No angina pain. No palpitations, Gastrointestinal - She has a lot of nausea. She sometimes has acid reflux. She has chronic diarrhea. No blood in the stool or black stools, Genitourinary (F) - No dysuria or hematuria. She has urinary frequency and nocturia. No urgency or incontinence, Musculoskeletal - She has a lot of pain, mainly in the back and shoulders, Integumentary - No skin rash or other skin changes, Neurologic - She has frequent headaches. She also complains of dizziness. No numbness or tingling. No other focal neurologic symptoms, Psychiatric - No anxiety or depression. She does not sleep well. Vital Signs: Performed on Mar 06, 2022 15:59: 10, 10, 25.58, 1.73 sq.m, 64 in (HIGH), 92 % (LOW), 127 /min (HIGH), 24 /min, 100/62 mm(hg), 96.9 F (LOW), and 149.0 lbs (LOW). Physical Examination: Constitutional - She appears very weak generally, Eyes - Sclerae nonicteric. Conjunctivae clear, ENMT - Mouth is dry. There are no lesions noted in the oral cavity, Neck - No mass or thyromegaly, Hematologic/Lymphatic - No cervical, clavicular, or axillary adenopathy, Respiratory - Lungs show diminished air movement on the right, Cardiovascular - Heart rhythm is regular with a tachycardia. There is no murmur, gallop, or rub noted, Abdomen - Mildly distended. Liver and spleen are not enlarged. There is no abdominal mass or ascites noted and there is no inguinal adenopathy, Back/Spine - No spine or CVA tenderness noted, Extremities - There is mild swelling of the left leg extending to and including the foot. Both feet are cool to touch. Dorsalis pedis pulses are palpable bilaterally, Integumentary - No rashes. No suspicious skin lesions noted, Neurologic - No focal neurologic deficits noted. Problem List: 1. Small cell carcinoma involving the lower lobe of the right lung, by clinical evaluation stage IVB (T3, N2, M1). 2. COPD. 3. Degenerative disease of the spine with chronic back pain. 4. Chronic diarrhea. Problems Addressed with this Encounter and Plan: Patient with small cell carcinoma involving the lower lobe of the right lung, by clinical evaluation stage IVB (T3, N2, M1c). There is associated right pleural effusion and right lower lobe atelectasis, and there is CT evidence of extensive hepatic metastatic disease. She has very poor performance status. The CT findings and the pathology results were reviewed with the patient and her significant other. We discussed the clinical implications. She has extensive stage small cell lung cancer and she has very poor performance status. We discussed the fact that this disease does tend to be responsive to chemotherapy, but there can be significant side effects associated with the treatment, particularly in the setting of poor performance status. We also discussed the fact that her cancer is not curable and that with a good response to chemotherapy, she would have an estimated survival in the range of 6 months to 1 year. Without treatment I would expect a survival of 1 month or less. I did review anticipated side effects with the chemotherapy, which may include nausea/vomiting, alopecia, weakness/fatigue, and low blood counts, among others. She does wish to proceed with treatment. In the setting of extensive stage disease, the recommended treatment will be carboplatin/etoposide chemotherapy in combination with atezolizumab, subject to verification of insurance coverage. She has very poor peripheral venous access, so she will need to undergo placement of Port-A-Cath venous access device, and this will be arranged with Dr. Victoria. She will need to complete staging with head MRI. I will plan to start treatment soon as the Port-A-Cath is in place. In the meantime, I am going to have her start empiric steroid therapy with dexamethasone 4 mg twice daily. I suggested that we complete a home O2 evaluation, but she is opposed to having oxygen at home, mainly because she wants to continue smoking. Signed By: Jacob Thomson M.D. <<Signature on File>>
== END 2022-03-06 11:48 | disposition home or self-care (01) ==
PROVIDERS: PCP Physician Assistant; Visit Provider Internal Medicine Medical Oncology
DX: C34.31 Malignant neoplasm of lower lobe, right bronchus or lung (principal); C77.9 Secondary and unspecified malignant neoplasm of lymph node, unspecified; C78.7 Secondary malignant neoplasm of liver and intrahepatic bile duct; J90 Pleural effusion, not elsewhere classified; J98.11 Atelectasis; F17.210 Nicotine dependence, cigarettes, uncomplicated
CPT/HCPCS: 99205

== ENCOUNTER → 2022-03-07 13:02 | Outpatient (BNVA) | payer MEDICARE, SELFPAY | PROVIDERS: PCP Physician Assistant; Referring Provider Internal Medicine Medical Oncology; Visit Provider Surgery | DX: C34.31 Malignant neoplasm of lower lobe, right bronchus or lung (principal); F17.210 Nicotine dependence, cigarettes, uncomplicated | CPT/HCPCS: 99203 ==

== ENCOUNTER 2022-03-12 05:06 | Inpatient (IN) | payer MEDICARE, SELFPAY ==
[2022-03-12] VITALS (31 sets, daily range): BP systolic 92–127; BP diastolic 56–92; PULSE 94–122; RESP 15–51; TEMP 36.4; O2SAT 87–96; BMI 41.4
--- NOTE | 2022-03-12 05:17 | XRR_ITS ---
PROCEDURE INFORMATION: Exam: XR Chest Exam date and time: 03/12/2022 6:24 AM Age: 66 years old Clinical indication: Dyspnea; Patient HX: SOB TECHNIQUE: Imaging protocol: XR of the chest. Views: 1 view. COMPARISON: CR XR chest 1V portable [id number] 02/20/2022 2:40 PM FINDINGS: Lungs: Patchy right basilar airspace opacities. Pleural spaces: Small right pleural effusion. No pneumothorax. Heart/Mediastinum: Unremarkable. No cardiomegaly. Bones/joints: Unremarkable. XR/XR chest 1V portable [id number] IMPRESSION: Similar patchy right basilar airspace opacities with small right pleural effusion.
--- NOTE | 2022-03-12 05:18 | ECG_ITS ---
[facility] Test Date: 2022-03-12 Pat Name: Heavenly Gallardo Department: Room: Gender: Female Hedis Manager: : 1955 Requested By: Alfredo Harley Order Number: [id number] Ricky MD: Amauri Hernandez M.D. Measurements Intervals Percival Rate: 114 P: 40 MT: 158 QRS: -1 QRSD: 61 T: 42 QT: 318 QTc: 439 Interpretive Statements SINUS TACHYCARDIA No further interpretation possible due to baseline artifact Electronically Signed On 03-12-2022 16:31:33 CDT by Amauri Hernandez M.D. [email or web address]
[2022-03-12] MEDS: haloperidol inj 5 mg/mL INJ 1 mL 3 MG IVP (05:39)
--- NOTE | 2022-03-12 05:39 | W.ED.SOB ---
Documented by User: Alfredo Medina DO 03/12/22 06:09 HPI - SOB/Dyspnea General: Chief Complaint: Shortness of Breath/Dyspnea Stated Complaint: SOB Time Seen by Provider: 03/12/22 05:12 Source: patient, EMS and old records reviewed History of Present Illness: HPI Narrative: 66-year-old female presents by ambulance to the emergency department. She is short of breath. She complains that she cannot breathe. She was set up to have a Port-A-Cath placement this morning, for a new diagnosis of carcinoma of the lung. She is received 1 chemotherapy treatment. She has been significant mental status changes. She cannot tell me the day of the week, or the month. She is now trying to refuse treatment here. She is obviously an unreliable historian otherwise. MD elicited complaint: shortness of breath Pertinent past history: COPD and other Onset (ago): hour(s) Timing: constant and progressively worsening Severity: moderate Exacerbating factors: exertion Relieving factors: oxygen Known history of: COPD and other Associated symptoms: Reports chest congestion, cough and nausea; Deny abdominal pain, chest pain, fever(s) or vomiting Treatment prior to arrival: oxygen, bronchodilator and other (Solu-Medrol 125) Related Data: Home oxygen amount: none Review of Systems General: Reports: ROS unobtainable due to mental status Const: Denies: fever(s) ENMT: Denies: throat pain Card: Denies: chest pain Resp: Reports: dyspnea, non-productive cough and chest congestion GI: Reports: nausea; Denies: abdominal pain or vomiting [facility] ED PFSH: Medical History (Updated 03/12/22 @ 09:52 by George Park DO) Acute exacerbation of chronic obstructive airways disease Closed bicondylar fracture of right tibial plateau Emphysema lung Hepatic metastases Hypokalemia Hypoxia Mass of mediastinum Metastatic lung cancer (metastasis from lung to other site) Pleural effusion Pleural effusion on right Transaminitis Surgical History S/P ORIF (open reduction internal fixation) fracture Social History Smoking and tobacco status: current every day smoker cigarettes Packs smoked per day: 2.5 Alcohol intake: never Physical Exam Const: GENERAL APPEARANCE: in distress, anxious, ill appearing and frail appearing NUTRITIONAL APPEARANCE: obese ORIENTATION/CONSCIOUSNESS: Yes awake and Yes confused; not oriented to person, not oriented to place and not oriented to time HENMT: COMMON NORMALS: normocephalic and atraumatic HEAD & SCALP: normocephalic and atraumatic FACE & SINUS: normal facial exam and face symmetric THROAT: posterior oropharynx normal Eye: COMMON NORMALS: Equal, round and reactive pupils present and EOMs intact bilaterally PUPIL: Yes Equal, round and reactive pupils present Neck/C-Spine: COMMON NORMALS: full ROM GENERAL: Yes trachea midline Chest: CHEST: Yes Symmetrical chest wall rise Resp: EFFORT & INSPECTION: No able to speak in complete sentences, Yes tachypneic, Yes respiratory distress, Yes labored and Yes uses accessory muscles AUSCULTATION: diminished lung sounds Cardio: COMMON NORMALS: regular rhythm RATE: tachycardic RHYTHM: regular rhythm GI: COMMON NORMALS: Soft to palpation and non-tender PALPATION: Yes Soft to palpation Extremity: GENERAL: No edema Neuro: KENYA COMA SCALE: document GCS findings [place] coma scale eye opening: Spontaneous [place] coma scale verbal response: Confused [place] coma scale motor response: Localising [place] coma scale total score: 13 SENSORIUM/ORIENTATION: No oriented to person, No oriented to place and No oriented to time Psych: ATTITUDE: Yes uncooperative and Yes agitated ACTIVITY/MOTOR BEHAVIOR: Yes psychomotor slowing SPEECH: Yes slurred THOUGHT PROCESS: disorganized and confused THOUGHT CONTENT: Yes Normal thought content present ATTENTION/CONCENTRATION: Yes attention grossly impaired and Yes concentration grossly impaired MEMORY/COGNITION: Yes memory grossly impaired and Yes cognition grossly impaired INSIGHT: Poor insight present (Psych) JUDGEMENT: questionable Skin: NARRATIVE SKIN EXAM: Ecchymosis to anterior belly wall, likely injection site Course Vital Signs: Vital signs: Vital Signs Pulse Rate 113 H 03/12/22 08:30 Respiratory Rate 17 03/12/22 08:30 Blood Pressure 110/71 03/12/22 08:30 Pulse Oximetry 96 03/12/22 08:30 MDM - SOB/Dyspnea Medical Decision Making 66-year-old female with significant shortness of breath, and mental status change. She is mildly hypotensive, tachycardic, and hypoxic. Blood gases pending. Other laboratory is pending. Patient attempted to refuse her chest x-ray, but is not mentating well, so we will have to medicate the patient and treat her. She will be checked out to the next physician at shift change. Lab Data : 03/12/22 06:05 03/12/22 06:05 Labs/Radiology: Radiology Impressions Chest X-Ray 03/12/22 05:17 IMPRESSION: Similar patchy right basilar airspace opacities with small right pleural effusion. Chest CTA 03/12/22 06:27 IMPRESSION: 1. No pulmonary emboli identified. 2. Similar to slightly increased bulk of neoplastic soft tissue in the subcarinal and right hilar regions as well as slightly increased size of soft tissue nodularity along the right pleural surface. 3. Similar small nodules in the left upper lobe. 4. Hepatic metastases are not well visualized due to phase of contrast. 5. Mildly increased size of a right pleural effusion. COMMENTS: Consistent with the [place] [employer]'s Incidental Findings Committee white paper (J Am Letha Radiol 2018): Any incidental renal lesion less than 1 cm or classified as too small to characterize, or any incidental cystic renal lesion characterized as simple-appearing, is likely benign. No follow-up imaging is recommended for these lesions per consensus recommendations based on imaging criteria. Gallbladder Ultrasound 03/12/22 07:03 IMPRESSION: 1. Markedly enlarged liver with numerous variable echogenicity masses. Likely metastatic disease. 2. Gallbladder not identified. May have been surgically removed. 3. No bile duct dilatation identified. Head CT 03/12/22 07:32 IMPRESSION: 1. No evidence of intracranial hemorrhage or mass effect. 2. Mild small vessel changes. Moderate parenchymal volume loss. 3. No acute intracranial findings. Laboratory Results WBC 24.3 10^3/uL (4.0-10.0) H 03/12/22 06:05 RBC 4.90 10^6/uL (4.1-5.3) 03/12/22 06:05 Hgb 15.4 g/dL (11.5-15.3) H 03/12/22 06:05 Hct 45.3 % (37.0-47.0) 03/12/22 06:05 MCV 92.4 fl (81-99) 03/12/22 06:05 MCH 31.4 pg (28.0-34.0) 03/12/22 06:05 MCHC 34.0 g/dL (30.0-36.0) 03/12/22 06:05 RDW 15.9 % (12.1-15.1) H 03/12/22 06:05 Plt Count 259 10^3/cmm (130-400) 03/12/22 06:05 MPV 9.6 fL (7.4-10.4) 03/12/22 06:05 Neut % (Auto) 80.2 % 03/12/22 06:05 Lymph % (Auto) 8.1 % 03/12/22 06:05 [place] % (Auto) 6.7 % 03/12/22 06:05 Eos % (Auto) 0.0 % 03/12/22 06:05 Baso % (Auto) 0.3 % 03/12/22 06:05 Neut # (Auto) 19.45 10^3/uL (1.8-7.7) H 03/12/22 06:05 Lymph # (Auto) 2.0 10^3/uL (0.8-4.8) 03/12/22 06:05 [place] # (Auto) 1.6 10^3/uL (0.2-0.9) H 03/12/22 06:05 Eos # (Auto) 0.0 10^3/uL (0.0-0.8) 03/12/22 06:05 Baso # (Auto) 0.1 10^3/uL (0.0-0.1) 03/12/22 06:05 Nucleated RBC % (auto) 0.1 % 03/12/22 06:05 Nucleated RBCs # 0.0 /100WBC 03/12/22 06:05 Specimen Type Arterial 03/12/22 06:06 Sample Site Brachial, left 03/12/22 06:06 ABG pH 7.56 (7.35-7.45) H 03/12/22 06:06 ABG pCO2 30.4 mmHg (35-45) L 03/12/22 06:06 ABG pO2 54.5 mmHg (80.0-100.0) L 03/12/22 06:06 ABG HCO3 27.3 mmol/L (22-26) H 03/12/22 06:06 ABG Base Excess 5.7 mmol/L (-2.0-2.0) H 03/12/22 06:06 Anant Test Pos 03/12/22 06:06 Hematocrit 47.2 % (37-47) H 03/12/22 06:06 Hgb O2 Saturation 89.4 % (95-100) L 03/12/22 06:06 Carboxyhemoglobin 1.1 %THgb (0.4-20.1) 03/12/22 06:06 Methemoglobin 0.4 % (0.4-1.5) 03/12/22 06:06 Total Hemoglobin 15.4 g/dL (12-16) 03/12/22 06:06 O2 Delivery Device Nc 03/12/22 06:06 O2 Liters/Min 2.0 % 03/12/22 06:06 Container Washer ID Hensa 03/12/22 06:06 Sodium 139 mmol/L (136-145) 03/12/22 06:05 Potassium 3.3 mmol/L (3.5-5.1) L 03/12/22 06:05 Chloride 98 mmol/L (98-107) 03/12/22 06:05 Carbon Dioxide 24 mmol/L (22-29) 03/12/22 06:05 Anion Gap 20.3 (5-19) H 03/12/22 06:05 BUN 35 mg/dL (8-23) H 03/12/22 06:05 Creatinine 0.8 mg/dL (0.5-0.9) 03/12/22 06:05 GFR Calculation 71.8 mL/min (90-130) L 03/12/22 06:05 Glucose 151 mg/dL (65-115) H 03/12/22 06:05 Calculated Osmolality 299 mOsm/kg (285-295) H 03/12/22 06:05 Lactic Acid 2.0 mmol/L (0.5-2.2) 03/12/22 06:05 Calcium 8.5 mg/dL (8.5-10.5) 03/12/22 06:05 Total Bilirubin 1.5 mg/dL (0.15-1.2) H 03/12/22 06:05 AST 72 U/L (0-32) H 03/12/22 06:05 ALT 85 U/L (0-33) H 03/12/22 06:05 Alkaline Phosphatase 255 IU/L (35-105) H 03/12/22 06:05 Troponin T Baseline 21 ng/L (0-10) H 03/12/22 06:05 Troponin T 120 Minute 17.84 ng/L (0-10) H 03/12/22 08:25 Delta Troponin T -3.16 ABS# (0-10) L 03/12/22 08:25 NT-Pro-B Natriuret Pep 817 pg/mL (0-125) H 03/12/22 06:05 Total Protein 5.9 g/dL (6.6-8.7) L 03/12/22 06:05 Albumin 3.8 g/dL (3.5-5.2) 03/12/22 06:05 Globulin 2.1 g/dL (1.3-4.6) 03/12/22 06:05 Influenza Type A Ag Negative (Negative) 03/12/22 07:07 Influenza Type B Ag Negative (Negative) 03/12/22 07:07 Discharge Plan Discharge Patient Disposition: Admitted As Inpatient Clinical Impression: Malignant neoplasm of lower lobe, right bronchus or lung, Pleural effusion, Encephalopathy acute, Hepatic metastases, Hypokalemia Condition: Stable Prescriptions: No Action pantoprazole 40 mg tablet,delayed release (DR/EC) 40 mg PO DAILY 0RF albuterol sulfate 90 mcg/actuation HFA aerosol inhaler 2 puff INHALATION QID PRN (Reason: Shortness Of Breath) 0RF Excedrin Migraine 250-250-65 mg Tablet 2 tab PO Q6H PRN (Reason: Migraine Headache) 0RF Primatene Mist 0.125 mg/actuation Hfa Aerosol Inhaler 1 puff INHALATION Q4H PRN (Reason: asthma) 0RF Rx Instructions: may repeat once after 1 minute; do not exceed 8 inhalations per 24 hrs aspirin 325 mg tablet 1,300 mg PO BID PRN (Reason: Headache) 0RF dexamethasone 4 mg tablet 4 mg PO BID 0RF Referrals: Nhung Perkins PA [Primary Care Provider] - Sign Out Sign Out Data: Patient Sign Out occurred on 03/12/22 at 07:01. Patient's care was discussed, and care was transferred from to George Park DO. Coding Level of Care Code ED Clerk Checker for Chg Fwd Exam Comprehensive Documented by User: George Park DO 03/12/22 09:52 HPI - SOB/Dyspnea General: Chief Complaint: Shortness of Breath/Dyspnea Stated Complaint: SOB Time Seen by Provider: 03/12/22 05:12 PFSH ED PFSH: Medical History (Updated 03/12/22 @ 09:52 by George Park DO) Acute exacerbation of chronic obstructive airways disease Closed bicondylar fracture of right tibial plateau Emphysema lung Hepatic metastases Hypokalemia Hypoxia Mass of mediastinum Metastatic lung cancer (metastasis from lung to other site) Pleural effusion Pleural effusion on right Transaminitis Surgical History S/P ORIF (open reduction internal fixation) fracture Social History Smoking and tobacco status: current every day smoker cigarettes Packs smoked per day: 2.5 Alcohol intake: never Physical Exam Neuro: KENYA COMA SCALE: document GCS findings [place] coma scale total score: 13 Course Vital Signs: Vital signs: Vital Signs Pulse Rate 113 H 03/12/22 08:30 Respiratory Rate 17 03/12/22 08:30 Blood Pressure 110/71 03/12/22 08:30 Pulse Oximetry 96 03/12/22 08:30 MDM - SOB/Dyspnea Medical Decision Making 66-year-old female with significant shortness of breath, and mental status change. She is mildly hypotensive, tachycardic, and hypoxic. Blood gases pending. Other laboratory is pending. Patient attempted to refuse her chest x-ray, but is not mentating well, so we will have to medicate the patient and treat her. She will be checked out to the next physician at shift change. Care assumed at change of shift. Discussed Dr. Ovalle will admit. Head CT negative for metastasis but does have a significant hepatic metastasis pleural effusion no PE. She has encephalopathy suspect from her cancer and hypoxia. Dr. Marquez has seen the patient in the ER and is talk to the family. Will admit to ICU as at this point she continues to be difficult to manage and is requiring one-on-one attention. Antibiotics have been started to cover for postobstructive pneumonia. Medical Records I reviewed the patient's medical records. Lab Data I reviewed the patient's lab results. : 03/12/22 06:05 03/12/22 06:05 Labs/Radiology: Radiology Impressions Chest X-Ray 03/12/22 05:17 IMPRESSION: Similar patchy right basilar airspace opacities with small right pleural effusion. Chest CTA 03/12/22 06:27 IMPRESSION: 1. No pulmonary emboli identified. 2. Similar to slightly increased bulk of neoplastic soft tissue in the subcarinal and right hilar regions as well as slightly increased size of soft tissue nodularity along the right pleural surface. 3. Similar small nodules in the left upper lobe. 4. Hepatic metastases are not well visualized due to phase of contrast. 5. Mildly increased size of a right pleural effusion. COMMENTS: Consistent with the [place] [employer]'s Incidental Findings Committee white paper (J Am Letha Radiol 2018): Any incidental renal lesion less than 1 cm or classified as too small to characterize, or any incidental cystic renal lesion characterized as simple-appearing, is likely benign. No follow-up imaging is recommended for these lesions per consensus recommendations based on imaging criteria. Gallbladder Ultrasound 03/12/22 07:03 IMPRESSION: 1. Markedly enlarged liver with numerous variable echogenicity masses. Likely metastatic disease. 2. Gallbladder not identified. May have been surgically removed. 3. No bile duct dilatation identified. Head CT 03/12/22 07:32
[2022-03-12] MEDS: ipratropium-albuterol 3 mL Neb INHALATION (05:56)
[2022-03-12 06:11] LABS: Basophils # 0.1 10^3/uL (0.0-0.1); Basophils % 0.3 %; Hematocrit 45.3 % (37.0-47.0); Hemoglobin 15.4 g/dL (11.5-15.3); Lymphocytes % 8.1 %; Mean Corpuscular Hemoglobin 31.4 pg (28.0-34.0); Mean Corpuscular Volume 92.4 fl (81-99); Mean Platelet Volume 9.6 fL (7.4-10.4); Monocytes # 1.6 10^3/uL (0.2-0.9); Monocytes % 6.7 %; Neutrophils # 19.45 10^3/uL (1.8-7.7); Neutrophils % 80.2 %; Nucleated Red Blood Cells % 0.1 %; Platelet Count 259 10^3/cmm (130-400); Red Cell Distribution Width 15.9 % (12.1-15.1); White Blood Count 24.3 10^3/uL (4.0-10.0)
[2022-03-12 06:18] LABS: ABG PCO2 30.4 mmHg (35-45); ABG PH Result 7.56 (7.35-7.45); Arterial Blood Gas Hematocrit 47.2 % (37-47); Base Excess ABG 5.7 mmol/L (-2.0-2.0); Blood Gas Allen Test Pos; Blood Gas Sample Site Brachial, left; Blood Gas Sample Type Arterial; Carboxyhemoglobin 1.1 %THgb (0.4-20.1); HCO3 ABG 27.3 mmol/L (22-26); HGB O2 Sat 89.4 % (95-100); Methemoglobin 0.4 % (0.4-1.5); Oxygen Device NC; PO2 ABG 54.5 mmHg (80.0-100.0); Total Hemoglobin 15.4 g/dL (12-16)
--- NOTE | 2022-03-12 06:27 | CTR_ITS ---
PROCEDURE INFORMATION: Exam: CTA Chest With Contrast Exam date and time: 03/12/2022 6:43 AM Age: 66 years old Clinical indication: Shortness of breath; Additional info: SOB tachycardia cancer PT TECHNIQUE: Imaging protocol: Computed tomographic angiography of the chest with contrast. 3D rendering (Not supervised by radiologist): MIP and/or 3D reconstructed images were created by the technologist. Radiation optimization: All CT scans at this facility use at least one of these dose optimization techniques: automated exposure control; mA and/or kV adjustment per patient size (includes targeted exams where dose is matched to clinical indication); or iterative reconstruction. Contrast material: OMNI 350; Contrast volume: 67 ml; Contrast route: INTRAVENOUS (IV); COMPARISON: CT angio chest PE protcl [id number] 02/20/2022 5:44 PM RADIATION DOSE METRICS: Total DLP (mGy-cm): 491.09 FINDINGS: Pulmonary arteries: Normal. No pulmonary emboli. Aorta: Unremarkable. No aortic aneurysm. No aortic dissection. Lungs: There is soft tissue filling the right lower lobe bronchus. Moderate centrilobular emphysema. Postobstructive atelectasis in the right lower lobe. Similar 1.1 cm pleural-based nodule in the left upper lobe on series 2, image 153 as well as some adjacent smaller nodules. Pleural spaces: Mildly increased size of a right pleural effusion. No pneumothorax. Heart: Unremarkable. No cardiomegaly. No pericardial effusion. Lymph nodes: Similar enlarged right paratracheal lymph node measuring up to 1.9 cm. Slightly increased size of a right juxta phrenic lymph node measuring up to 1.6 cm. Similar enlarged gastrohepatic lymph nodes. Liver: Similar enlargement and nodularity of the liver surface. Metastatic liver lesions are not well visualized on this CTA exam due to phase of contrast. Kidneys and ureters: Left renal cyst. Bones/joints: Remote right-sided rib fractures. Remote thoracolumbar compression fractures. Soft tissues: Similar to slightly increased bulk of neoplastic soft tissue in the subcarinal and right hilar regions measuring approximately 4.6 x 5.4 cm. Similar to slightly increased size of soft tissue nodules along the right pleural surface. CT/CT angio chest PE protcl [id number] IMPRESSION: 1. No pulmonary emboli identified. 2. Similar to slightly increased bulk of neoplastic soft tissue in the subcarinal and right hilar regions as well as slightly increased size of soft tissue nodularity along the right pleural surface. 3. Similar small nodules in the left upper lobe. 4. Hepatic metastases are not well visualized due to phase of contrast. 5. Mildly increased size of a right pleural effusion. COMMENTS: Consistent with the [place] [employer]'s Incidental Findings Committee white paper (J Am Letha Radiol 2018): Any incidental renal lesion less than 1 cm or classified as too small to characterize, or any incidental cystic renal lesion characterized as simple-appearing, is likely benign. No follow-up imaging is recommended for these lesions per consensus recommendations based on imaging criteria.
[2022-03-12 06:37] LABS: Troponin(5th) Baseline 21 ng/L (0-10)
[2022-03-12 06:45] LABS: Alanine Aminotransferase 85 U/L (0-33); Albumin Level 3.8 g/dL (3.5-5.2); Alkaline Phosphatase 255 IU/L (35-105); Anion Gap 20.3 (5-19); Aspartate Amino Transferase 72 U/L (0-32); Blood Urea Nitrogen 35 mg/dL (8-23); Calcium 8.5 mg/dL (8.5-10.5); Carbon Dioxide 24 mmol/L (22-29); Chloride 98 mmol/L (98-107); Globulin 2.1 g/dL (1.3-4.6); Glomerular Filtration Rate 71.8 mL/min (90-130); Glucose 151 mg/dL (65-115); NT Pro B Type Natriuretic Pept 817 pg/mL (0-125); Osmolality Calculated 299 mOsm/kg (285-295); Potassium 3.3 mmol/L (3.5-5.1); Sodium 139 mmol/L (136-145); Total Bilirubin 1.5 mg/dL (0.15-1.2); Total Protein 5.9 g/dL (6.6-8.7)
[2022-03-12] MEDS: iohexol 350 mg/mL 100 mL Btl IV (06:52)
[2022-03-12] MEDS: levofloxacin-dextrose 5 % 750 MG/150 ML PREMIX 100 MG IV (07:00)
--- NOTE | 2022-03-12 07:03 | US_ITS ---
WS: [id number] RIGHT UPPER QUADRANT ULTRASOUND HISTORY: elevated LFTs and t bili COMPARISON: CT angiogram 03/12/2022. Prior RIGHT upper quadrant ultrasound 09/17/2009. Liver: 23.5 cm in length. Markedly enlarged heterogeneous liver. There are multiple nodules throughou t the liver. Nodules are variable echogenicity but predominantly of increased echogenicity. The large st mass measures 4.6 x 4.5 cm in the LEFT lobe of the liver. Portal Vein: Normal hepatopetal flow with monophasic waveform. Gallbladder: Gallbladder not identified may have been previously removed. CBD: Not identified. The bile ducts do not appear dilated. Pancreas: Not well visualized Right kidney: 9.8 cm in length. Normal size kidney with diffuse cortical thinning. Small cyst in the lower pole measures 1.3 x 1.4 x 1.1 cm. Aorta and IVC: Unremarkable abdominal aorta and IVC. No ascites. US/US gall bladder [id number] IMPRESSION: 1. Markedly enlarged liver with numerous variable echogenicity masses. Likely metastatic disease. 2. Gallbladder not identified. May have been surgically removed. 3. No bile duct dilatation identified.
--- NOTE | 2022-03-12 07:18 | ECG_ITS ---
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 Measurements Intervals [place] Rate: 124 P: -12 ID: [id number] QRS: 34 QRSD: 72 T: 0 QT: 337 QTc: 484 Interpretive Statements SINUS TACHYCARDIA LOW QRS VOLTAGE [QRS DEFLECTION < 0.5/1.0 mV IN LIMB/CHEST LEADS] Compared to ECG 03/12/2022 06:26:58 Low QRS voltage now present Electronically Signed On 03-12-2022 16:35:57 CDT by Amauri Hernandez M.D. [id number]
--- NOTE | 2022-03-12 07:32 | CT_ITS ---
WS: [id number] CT HEAD TECHNIQUE: Noncontrast CT of the head obtained from the skullbase to the vertex. CLINICAL INFORMATION: AMS, lung ca w mets COMPARISON: 2013 DLP: 970.[address] scans at [facility] use at least one of these dose optimization techniques: automated e xposure control; mA and/or kV adjustment per patient size (includes targeted exams where dose is matc hed to clinical indication); or iterative reconstruction. FINDINGS: No evidence of intracranial hemorrhage or mass effect. Ventricular system and basal cisterns are nagel nt. Mild small vessel changes with moderate parenchymal volume loss. Tiny chronic lacunar infarct RIG HT caudate. No extra-axial fluid collections. No evidence of mass or mass effect. Paranasal sinuses and mastoid air cells are well aerated. .Normal visualized soft tissues. CT/CT head wo con* [id number] IMPRESSION: 1. No evidence of intracranial hemorrhage or mass effect. 2. Mild small vessel changes. Moderate parenchymal volume loss. 3. No acute intracranial findings.
[2022-03-12 07:52] LABS: Influenza A by IFA Negative (Negative); Influenza B by IFA Negative (Negative)
[2022-03-12] MEDS: LORazepam 2 mg/mL INJ 1 mL IVP (08:18)
[2022-03-12 08:53] LABS: Troponin 5 2HR 17.84 ng/L (0-10)
[2022-03-12 08:56] LABS: Troponin 5 2HR Delta -3.16 ABS# (0-10)
--- NOTE | 2022-03-12 09:18 | PC.PHAR ---
pt unable to verify medications-pts life partner inge [phone] verified pts medications
[2022-03-12] MEDS: haloperidol inj 5 mg/mL INJ 1 mL IM (09:31)
--- NOTE | 2022-03-12 10:55 | PM.HP ---
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 She was able to see oncology on the , and had plans to initiate chemotherapy after port placement. According to her life partner she has been doing very poorly in the last 3 days, not able to get out of bed, incontinent with hallucinations. He does not believe she has had any fevers. She has appeared short of breath at times. There has been no vomiting. She occasionally has loose stool. She has not yet received any chemotherapy. There was a concern she would need oxygen at her oncology visit, but she refused to have this evaluated as she wanted to continue smoking. Patient is not able to provide any history to me. This was obtained by reviewing records, as well as visiting with her life partner. In the emergency department she received multiple doses of Haldol, an injection of lorazepam, and an infusion of levofloxacin. It looks like she was supposed to start dexamethasone following her oncology appointment. I am not for sure if this happened. Review of Systems General: Reports: ROS unobtainable due to mental status (Confusion evident) Medications/Allergies Home Medications Medication Instructions Recorded Confirmed Last Taken Type albuterol sulfate 90 mcg/actuation 2 puff INHALATION QID PRN 02/20/22 03/12/22 Unknown History aerosol inhaler aspirin 325 mg tablet 1,300 mg PO BID PRN 02/20/22 03/12/22 02/20/22 14:30 History bzvtcsu-odzypvvuovmvf-ljnbvhfq 250 2 tab PO Q6H PRN 02/20/22 03/12/22 Unknown History mg-250 mg-65 mg tablet (Excedrin Migraine) epinephrine 0.125 mg/actuation 1 puff INHALATION Q4H PRN 02/20/22 03/12/22 Unknown History aerosol inhaler (Primatene Mist) pantoprazole 40 mg tablet,delayed 40 mg PO DAILY 02/20/22 03/12/22 02/20/22 14:30 History release dexamethasone 4 mg tablet 4 mg PO BID 03/12/22 03/12/22 Unknown History Allergies Allergy/AdvReac Type Severity Reaction Status Date / Time No Known Allergies Allergy Verified 03/12/22 09:18 PFSH Acute PFSH: Medical History (Updated 03/12/22 @ 11:12 by Dheeraj Ovalle MD) Acute exacerbation of chronic obstructive airways disease Closed bicondylar fracture of right tibial plateau Emphysema lung Hepatic metastases Hypokalemia Hypoxia Mass of mediastinum Metastatic lung cancer (metastasis from lung to other site) Pleural effusion Pleural effusion on right Transaminitis Surgical History S/P ORIF (open reduction internal fixation) fracture Social History (Updated 03/12/22 @ 11:00 by Dheeraj Ovalle MD) Smoking and tobacco status: current every day smoker cigarettes Packs smoked per day: 2.5 Alcohol intake: former Vitals/I&O/Wt Last Vital Signs Pulse 110 H 03/12/22 10:10 Resp 20 H 03/12/22 10:10 BP 115/92 03/12/22 10:10 Pulse Ox 94 03/12/22 10:10 03/11/22 03/12/22 03/12/22 22:59 06:59 14:59 Intake Total 150 / 150 Balance 150 / 150 Weight last 48 hrs Weight 106.141 kg Physical Exam Narrative: General exam is a white female, slow to respond, who will occasionally answer yes and no. She appears obviously confused. HEENT: Pupils equally round. Oropharynx clear. Neck is supple no lymphadenopathy thyromegaly Cardiovascular tachycardic, no murmur Lungs diminished breath sounds bilaterally. A faint wheeze Abdomen is soft with positive bowel sounds. No obvious organomegaly exam is deferred Extremities trace bilateral edema Skin no rash Neuro no obvious focal deficits, but is confused. Gait were not tested. Data : 03/12/22 06:05 03/12/22 06:05 Other Labs: ABG demonstrates a pH of 7.56, PCO2 30, PO2 of 54 on 2 L Total bilirubin 1.5, AST 72, ALT 85, alk phos 255 Ammonia level pending Troponin 21 with repeat of 17 Influenza negative Calcium is 8.[address] no acute changes Gallbladder ultrasound enlarged liver with likely metastatic disease, no bile duct dilation CTA chest no pulmonary edema, tumor slightly increased, right hilar region, right pleural effusion. Right lung atelectasis or infiltrate noted. EKG with sinus tachycardia, normal axis, low QRS voltage Previous echocardiogram February 2022 demonstrated normal EF, 1/4 diastolic dysfunction Micro: Microbiology 03/12/22 08:58 Blood Culture - Preliminary Blood SPECIMEN COLLECTED A&P Assessment and plan (1) Pneumonia: Bronchoscopy previous hospital stay, clinical and laboratory findings suggest pneumonia right lung possibly postobstructive. Initiate vancomycin and Zosyn Oxygen as needed Pulmonary toilet Sputum culture, MRSA PCR Status: Acute (2) Encephalopathy acute: Significant encephalopathy, acute and present on admission. Life partner reports Etiology could be related to malignancy, although CT head does not show any acute findings. Could consider MRI, if stabilizes. Currently she had required a significant amount of Haldol, and Ativan and the emergency department thought it best she go to the ICU with a sitter. Other etiologies could be related to recent start of dexamethasone. Life partner is concerned she may have been bipolar most of her life, and certainly used alcohol for a large part of it. At this point we will discontinue her med dexamethasone Initiate thiamine Check B12, TSH Status: Acute (3) Hypokalemia: Supplement and IV fluids, with hydration Status: Acute (4) Pleural effusion: She recently had a thoracentesis. Secondary to malignancy I expect this to continue to reaccumulate, and is not causing any severe symptomatology currently. We will continue to reevaluate this clinically Status: Acute (5) Malignant neoplasm of lower lobe, right bronchus or lung: Recent diagnosis of malignancy. Life partner is wondering if hospice is appropriate, or continued attempts at treatment. Will discuss with her oncologist so they can develop a plan. Status: Acute Plan Multiple other medical problems as outlined in past medical history Allow natural Protonix for GI prophylaxis Lovenox for DVT prophylaxis Attestations Medical Necessity Statement*: Will need greater than 2 midnight stay for evaluation and treatment of acute encephalopathy, pneumonia Coding Level of Care Code Acute [employer] for [employer] Diagnoses Pneumonia J18.9 Encephalopathy acute G93.40 Hypokalemia E87.6 Pleural effusion J90 Malignant neoplasm of lower lobe, right bronchus or lung C34.31
[2022-03-12 11:07] LABS: Ammonia 76 umol/L (11-51)
--- NOTE | 2022-03-12 11:18 | ECG_ITS ---
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 Measurements Intervals [place] Rate: 100 P: 39 LA: 134 QRS: -8 QRSD: 79 T: 67 QT: 364 QTc: 470 Interpretive Statements SINUS TACHYCARDIA LOW QRS VOLTAGE IN PRECORDIAL LEADS [QRS DEFLECTION < 1.0 mV IN CHEST LEADS] ABNORMAL RHYTHM ECG Compared to ECG 03/12/2022 08:08:13 No significant changes Electronically Signed On 03-12-2022 16:36:39 CDT by Amauri Hernandez M.D. [email or web address]
[2022-03-12 12:51] LABS: Troponin 5 6HR 16.99 ng/L (0-10)
[2022-03-12 12:53] LABS: Troponin 5 6HR Delta -4.01 ng/L (0-12)
[2022-03-12 12:56] LABS: Thyroid Stimulating Hormone 7.69 uIU/mL (0.27-4.20); Vitamin B12 585 pg/mL (232-1245)
[2022-03-12] MEDS: piperacillin-tazobactam 3.375 GM in sodium chloride 0.9% (plus) 50 ML IV ×2 (13:00→20:33)
[2022-03-12] MEDS: vancomycin 1,250 MG/250 ML PIGGYBACK 250 MG IV (14:44)
[2022-03-12] MEDS: D5-NS 0.45% + KCL 20 mEq 20 MEQ/1,000 ML BAG 100 MEQ IV (14:45)
[2022-03-12] MEDS: enoxaparin 40 mg/0.4 mL Syringe SUBCUT (14:45)
--- NOTE | 2022-03-12 15:03 | PC.NURSE ---
Pt was transferred to unit at 1225 via bed on 3L NC. Pt does not repond to or follow commands. Small bruises and scratches are noted to lower legs.
--- NOTE | 2022-03-12 18:44 | PC.NURSE ---
Luis benton placed this shift.
[2022-03-12] MEDS: lactulose oral liq 20 gm/30 mL UDC 30 GM PO (20:49)
--- NOTE | 2022-03-12 22:00 | PC.NURSE ---
Refuses Oxygen Patient O2 sats noted to be in the high 80's, this nurse went in to assess patient and placed oxygen on patient. Patient immediately removed nasal cannula and states I do not want to wear that . Educated patient on importance of wearing O2, patient still declined.
[2022-03-13] VITALS (25 sets, daily range): BP systolic 103–133; BP diastolic 64–79; PULSE 36–115; RESP 15–43; TEMP 36.1–36.6; O2SAT 85–94
[2022-03-13] MEDS: D5-NS 0.45% + KCL 20 mEq 20 MEQ/1,000 ML BAG 100 MEQ IV ×2 (01:50→17:29)
[2022-03-13] MEDS: vancomycin 1,250 MG/250 ML PIGGYBACK 250 MG IV (01:50)
[2022-03-13 04:01] LABS: Basophils # 0.1 10^3/uL (0.0-0.1); Basophils % 0.3 %; Eosinophils # 0.1 10^3/uL (0.0-0.8); Eosinophils % 0.4 %; Hematocrit 43.2 % (37.0-47.0); Hemoglobin 13.5 g/dL (11.5-15.3); Lymphocytes # 1.8 10^3/uL (0.8-4.8); Lymphocytes % 7.6 %; Mean Corpuscular HGB Conc 31.3 g/dL (30.0-36.0); Mean Corpuscular Volume 99.3 fl (81-99); Mean Platelet Volume 9.8 fL (7.4-10.4); Monocytes # 1.8 10^3/uL (0.2-0.9); Monocytes % 7.8 %; Neutrophils % 78.5 %; Nucleated Red Blood Cells % 0.2 %; Platelet Count 209 10^3/cmm (130-400); Red Blood Count 4.35 10^6/uL (4.1-5.3); Red Cell Distribution Width 16.1 % (12.1-15.1); White Blood Count 23.6 10^3/uL (4.0-10.0)
[2022-03-13 04:23] LABS: Ammonia 95 umol/L (11-51)
[2022-03-13 04:26] LABS: Alanine Aminotransferase 82 U/L (0-33); Albumin Level 3.3 g/dL (3.5-5.2); Alkaline Phosphatase 223 IU/L (35-105); Anion Gap 17.8 (5-19); Aspartate Amino Transferase 76 U/L (0-32); Blood Urea Nitrogen 26 mg/dL (8-23); Calcium 8.1 mg/dL (8.5-10.5); Carbon Dioxide 21 mmol/L (22-29); Chloride 102 mmol/L (98-107); Globulin 1.8 g/dL (1.3-4.6); Glomerular Filtration Rate 71.8 mL/min (90-130); Glucose 154 mg/dL (65-115); Magnesium 2.2 mg/dL (1.7-2.3); Osmolality Calculated 294 mOsm/kg (285-295); Sodium 138 mmol/L (136-145); Total Bilirubin 1.1 mg/dL (0.15-1.2); Total Protein 5.1 g/dL (6.6-8.7)
[2022-03-13 05:06] LABS: Potassium 2.8 mmol/L (3.5-5.1)
[2022-03-13] MEDS: levothyroxine 25 mcg Tablet PO (05:16)
[2022-03-13] MEDS: piperacillin-tazobactam 3.375 GM in sodium chloride 0.9% (plus) 50 ML IV ×3 (05:16→19:21)
[2022-03-13 05:22] LABS: Slide Review Slide Review Perform
--- NOTE | 2022-03-13 05:38 | PC.NURSE ---
Critical Lab Patient potassium critically low, informed Received orders for a K-Denver 80mEq.
[2022-03-13] MEDS: lidocaine 1% 5 ML in potassium chloride premix 100 ML 25 ML IV ×2 (05:54→10:23)
--- NOTE | 2022-03-13 06:20 | PC.NURSE ---
Shift Summary Patient had an eventful evening-politely refused to wear oxygen overnight, education provided throughout shift on importance of oxygen. Patient still declines oxygen at this time. K-Denver, Zosyn, and IVF are infusing please see MAR for infusion rate. Scratches noted to bilateral legs and sacrum noted to be red. No other skin issues noted at this time. Patient remains alert to person and place but is confused on time and situation. Frequently reoriented patient to surroundings, time, and place.
--- NOTE | 2022-03-13 07:17 | P.PN_ITS ---
Subjective Subjective: Heavenly awakens and answers few questions. Realizes she has cancer but does not know what type. Alert to self. Seems somewhat improved from yesterday. Denies any pain. Nursing relates she had some loose stool last night. reported she was having some loose stool at home. Medications: Reviewed: Yes Vitals/I&O/Wt Last Vital Signs Temp 97.0 F L 03/13/22 04:00 Pulse 108 H 03/13/22 06:30 Resp 24 H 03/13/22 06:30 BP 108/68 03/13/22 06:30 Pulse Ox 93 03/13/22 06:30 03/12/22 03/13/22 03/13/22 22:59 06:59 14:59 Intake Total 300 / 450 1300 / 1750 Balance 300 / 450 1300 / 1750 Weight last 48 hrs Weight 106.141 kg Physical Exam Narrative: General exam is a white female, with increased alertness improved from yesterday HEENT: Pupils equally round. Oropharynx clear. Mild tachypnea Cardiovascular tachycardic, no murmur Lungs diminished breath sounds bilaterally. A faint wheeze Abdomen is soft with positive bowel sounds. No obvious organomegaly Extremities trace bilateral edema Skin no rash Neuro no obvious focal deficits, but is confused. Urinary Catheter Management: Eason: Cath Placed During This Visit: yes Urinary Catheter Date of Insertion: 03/12/22 Urinary Catheter Time of Insertion: 14:00 Data : 03/13/22 03:19 03/13/22 03:19 Micro: Microbiology 03/12/22 11:57 MRSA Culture - Final Nose 03/12/22 12:13 Blood Culture - Preliminary Blood SPECIMEN COLLECTED 03/12/22 08:58 Blood Culture - Preliminary Blood SPECIMEN COLLECTED A&P Assessment and plan (1) Pneumonia: Bronchoscopy previous hospital stay, clinical and laboratory findings suggest pneumonia right lung possibly postobstructive. Continue vancomycin and Zosyn MRSA PCR negative. Will discontinue vancomycin when she makes clinical improvement Oxygen as needed Pulmonary toilet Awaiting sputum culture as well Status: Acute (2) Encephalopathy acute: Significant encephalopathy, acute and present on admission. Life partner reports Etiology could be related to malignancy, although CT head does not show any acute findings. Could consider MRI, if stabilizes. Currently requiring a sitter Other etiologies could be related to recent start of dexamethasone. Life partner is concerned she may have been bipolar most of her life, and certainly used alcohol for a large part of it. Dexamethasone was discontinued. Infection could play a role. She has been treated for pneumonia. Also new information outlined some loose stool prior to admission. Will check C. difficile toxin. This could have been present on admission. Continue thiamine TSH mildly elevated. B12 level normal. Thyroid hormone started low-dose May be of a component of hepatic encephalopathy with elevated ammonia level Status: Acute (3) Hypokalemia: Supplement and IV fluids, with hydration Status: Acute (4) Pleural effusion: She recently had a thoracentesis. Secondary to malignancy I expect this to continue to reaccumulate, and is not causing any severe symptomatology currently. We will continue to reevaluate this clinically Status: Acute (5) Malignant neoplasm of lower lobe, right bronchus or lung: Recent diagnosis of malignancy. Life partner is wondering if hospice is appropriate, or continued attempts at treatment. At this point we are waiting to see if she makes clinical improvement in her acute encephalopathy to be able to make her own decisions after treatment of pneumonia and other health conditions. Note that she has a significant amount of metastatic disease in the liver, causing transaminitis as well as elevated ammonia. Lactulose was initiated for this. She is also being given fluids. Status: Acute Plan Multiple other medical problems as outlined in past medical history Allow natural Protonix for GI prophylaxis Lovenox for DVT prophylaxis May transfer out of ICU Attestations Medical Necessity Statement*: Needs continued hospitalization, for treatment of acute encephalopathy, pneumonia, hepatic encephalopathy Coding Level of Care Code Acute [employer] for [facility] Diagnoses Pneumonia J18.9 Encephalopathy acute G93.40 Hypokalemia E87.6 Pleural effusion J90 Malignant neoplasm of lower lobe, right bronchus or lung C34.31
[2022-03-13] MEDS: lactulose oral liq 20 gm/30 mL UDC 30 GM PO ×3 (07:51→19:21)
[2022-03-13] MEDS: thiamine 100 mg Tablet PO (07:51)
[2022-03-13] MEDS: pantoprazole 40 mg SDV IVP (07:51)
--- NOTE | 2022-03-13 11:21 | PC.NURSE ---
Pt transfered to [facility] via bed with all belongings. Sitter in room. aware
[2022-03-13 14:05] LABS: Vancomycin Trough 25.6 ug/mL (10-15)
[2022-03-13 15:32] LABS: Urine Appearance Hazy (CLEAR); Urine Color Amber (Yellow)
[2022-03-13 15:33] LABS: Bilirubin Urine 1+ (Negative); Blood Urine 2+ (Negative); Glucose Urine UA Norm (Normal); Ketones Urine Negative (Negative); Leukocyte Esterase Urine Trace (Negative); Nitrate Urine Negative (Negative); Protein Urine Trace (Negative); Urobilinogen Urine Norm (Negative); pH Urine 5 (5-7)
[2022-03-13 15:34] LABS: Add Urine Culture? No; Bacteria Urine TRACE /hpf
[2022-03-13] MEDS: enoxaparin 40 mg/0.4 mL Syringe SUBCUT (16:17)
[2022-03-13] MEDS: nystatin powder 15 gm Btl 1 APPLIC TOPICAL (17:29)
--- NOTE | 2022-03-13 20:09 | PC.NURSE ---
O2 SAT O2 sat 86% on RA. Is refusing to wear oxygen. Pt care nurse notified
[2022-03-14 00:21] VITALS: BP 110/67; PULSE 97; RESP 24; TEMP 36.1; O2SAT 89
[2022-03-14] MEDS: vancomycin 1,250 MG/250 ML PIGGYBACK 250 MG IV (02:56)
[2022-03-14 03:33] VITALS: PULSE 99
--- NOTE | 2022-03-14 03:42 | PC.NURSE ---
Patient is incontinent of stool. Stools are liquid. Unable to see urine/know if patient voided due to liquid stools. No voids charted throughout shift due to this.
[2022-03-14] MEDS: piperacillin-tazobactam 3.375 GM in sodium chloride 0.9% (plus) 50 ML IV (03:52)
[2022-03-14] MEDS: levothyroxine 25 mcg Tablet PO (03:53)
[2022-03-14] MEDS: D5-NS 0.45% + KCL 20 mEq 20 MEQ/1,000 ML BAG 100 MEQ IV (03:53)
[2022-03-14 04:00] VITALS: BP 133/79; PULSE 89; RESP 24; TEMP 36.6; O2SAT 85
[2022-03-14 07:13] LABS: Basophils # 0.1 10^3/uL (0.0-0.1); Basophils % 0.4 %; Hematocrit 46.5 % (37.0-47.0); Hemoglobin 14.6 g/dL (11.5-15.3); Lymphocytes # 1.7 10^3/uL (0.8-4.8); Lymphocytes % 7.6 %; Mean Corpuscular HGB Conc 31.4 g/dL (30.0-36.0); Mean Corpuscular Hemoglobin 31.5 pg (28.0-34.0); Mean Corpuscular Volume 100.4 fl (81-99); Mean Platelet Volume 9.6 fL (7.4-10.4); Monocytes # 1.5 10^3/uL (0.2-0.9); Monocytes % 6.5 %; Neutrophils # 17.92 10^3/uL (1.8-7.7); Neutrophils % 79.6 %; Nucleated Red Blood Cells % 0.1 %; Platelet Count 169 10^3/cmm (130-400); Red Blood Count 4.63 10^6/uL (4.1-5.3); Red Cell Distribution Width 16.3 % (12.1-15.1); White Blood Count 22.5 10^3/uL (4.0-10.0)
[2022-03-14 07:38] LABS: Alanine Aminotransferase 88 U/L (0-33); Albumin Level 3.3 g/dL (3.5-5.2); Alkaline Phosphatase 217 IU/L (35-105); Blood Urea Nitrogen 19 mg/dL (8-23); Carbon Dioxide 17 mmol/L (22-29); Chloride 106 mmol/L (98-107); Globulin 2.1 g/dL (1.3-4.6); Glomerular Filtration Rate 83.7 mL/min (90-130); Glucose 168 mg/dL (65-115); Magnesium 2.1 mg/dL (1.7-2.3); Osmolality Calculated 294 mOsm/kg (285-295); Sodium 139 mmol/L (136-145); Total Bilirubin 1.2 mg/dL (0.15-1.2); Total Protein 5.4 g/dL (6.6-8.7)
[2022-03-14 07:39] LABS: Ammonia 64 umol/L (11-51)
[2022-03-14 07:49] LABS: Anion Gap 19.7 (5-19); Aspartate Amino Transferase 58 U/L (0-32); Potassium 3.7 mmol/L (3.5-5.1)
[2022-03-14 08:00] VITALS: BP 109/68; PULSE 92; RESP 15; TEMP 36.4; O2SAT 87
[2022-03-14 08:01] LABS: Slide Review Slide Review Perform
[2022-03-14 12:00] VITALS: BP 114/72; PULSE 109; RESP 16; TEMP 36.4; O2SAT 85
--- NOTE | 2022-03-14 14:33 | PM.DCS ---
Discharge Providers Date of Admission: 03/12/22 14:07 Date of Discharge: March 14, 2022 Attending Provider at Admission: Dheeraj Ovalle MD Attending Provider at Discharge: Dheeraj Ovalle MD Primary Care Provider: Nhung Perkins Diagnoses at Discharge Discharge Diagnosis (1) Pneumonia: Status: Acute (2) Encephalopathy acute: Status: Acute (3) Hypokalemia: Status: Acute (4) Pleural effusion: Status: Acute (5) Malignant neoplasm of lower lobe, right bronchus or lung: Status: Acute Permanent problem details: Stage IVB - T3, N2, M1c Reason for Visit Reason for Visit: SOB Hospital Course Hospital Course Heavenly is a 66-year-old white female recently diagnosed with metastatic small cell lung cancer, who originally had plans to initiate chemotherapy with oncology. She had been worsening at home and was unable to take care of her activities of daily living, was having hallucinations, and becoming significantly weaker. She was diagnosed with probable postobstructive pneumonia, hypokalemia, acute encephalopathy from multiple factors including pneumonia, malignancy, hepatic encephalopathy, possible medicine effect. CT head showed no mass. She was given IV antibiotics and hydrated and had some improvement of her mental status, but never to a level to where it was thought she could make her own decisions. Her life partner, had commented on admission that he did not believe she would be able to tolerate chemotherapy secondary to her past resistance to any medical care, advanced disease, and worsening weakness. During the hospital stay with no significant improvement, it was appropriate from a medical standpoint to change to comfort measures. I confirmed with her oncologist that this was an appropriate option for her medical care considering the extent of her malignancy. On March 14, it was decided by her decision maker, her life partner who is also the father of her child, to proceed to comfort measures at a nursing facility. This was arranged. Physical Exam Narrative: General exam is a weak appearing female who can carry on a conversation but does not appear to be capable of understanding her entire situation. During my last interview with her she believed the year to be 1963. Neck is supple no lymphadenopathy thyromegaly Cardiovascular regular rate and rhythm without murmur Lungs diminished breath sounds bilaterally Abdomen is soft with positive bowel sounds Extremities no cyanosis clubbing. Trace edema is noted. Urinary Catheter Management: Eason: Cath Placed During This Visit: yes Urinary Catheter Date of Insertion: 03/12/22 Urinary Catheter Time of Insertion: 14:00 Discharge Data Studies Completed and Pending Completed Studies During Hospitalization Category Date Time Status CT angio chest PE protcl [id number] Urgent Cat Scan 03/12/22 06:[address] head wo con* [id number] Stat Cat Scan 03/12/22 07:32 Completed XR chest 1V portable [id number] Urgent Exams 03/12/22 05:17 Completed US gall bladder [id number] Stat Ultrasound 03/12/22 07:03 Completed Pending at discharge Category Date Time Status Blood Culture Stat Lab 03/12/22 08:58 Results Blood Culture Stat Lab 03/12/22 12:13 Results Sputum Culture and Gram Stain Routine Lab 03/12/22 11:32 Uncollected Radiology Impressions Chest X-Ray 03/12/22 05:17 IMPRESSION: Similar patchy right basilar airspace opacities with small right pleural effusion. Chest CTA 03/12/22 06:27 IMPRESSION: 1. No pulmonary emboli identified. 2. Similar to slightly increased bulk of neoplastic soft tissue in the subcarinal and right hilar regions as well as slightly increased size of soft tissue nodularity along the right pleural surface. 3. Similar small nodules in the left upper lobe. 4. Hepatic metastases are not well visualized due to phase of contrast. 5. Mildly increased size of a right pleural effusion. COMMENTS: Consistent with the [employer]'s Incidental Findings Committee white paper (J Am Letha Radiol 2018): Any incidental renal lesion less than 1 cm or classified as too small to characterize, or any incidental cystic renal lesion characterized as simple-appearing, is likely benign. No follow-up imaging is recommended for these lesions per consensus recommendations based on imaging criteria. Gallbladder Ultrasound 03/12/22 07:03 IMPRESSION: 1. Markedly enlarged liver with numerous variable echogenicity masses. Likely metastatic disease. 2. Gallbladder not identified. May have been surgically removed. 3. No bile duct dilatation identified. Head CT 03/12/22 07:32 IMPRESSION: 1. No evidence of intracranial hemorrhage or mass effect. 2. Mild small vessel changes. Moderate parenchymal volume loss. 3. No acute intracranial findings. Laboratory Results WBC 22.5 10^3/uL (4.0-10.0) H 03/14/22 07:05 RBC 4.63 10^6/uL (4.1-5.3) 03/14/22 07:05 Hgb 14.6 g/dL (11.5-15.3) 03/14/22 07:05 Hct 46.5 % (37.0-47.0) 03/14/22 07:05 MCV 100.4 fl (81-99) H 03/14/22 07:05 MCH 31.5 pg (28.0-34.0) 03/14/22 07:05 MCHC 31.4 g/dL (30.0-36.0) 03/14/22 07:05 RDW 16.3 % (12.1-15.1) H 03/14/22 07:05 Plt Count 169 10^3/cmm (130-400) 03/14/22 07:05 MPV 9.6 fL (7.4-10.4) 03/14/22 07:05 Neut % (Auto) 79.6 % 03/14/22 07:05 Lymph % (Auto) 7.6 % 03/14/22 07:05 [place] % (Auto) 6.5 % 03/14/22 07:05 Eos % (Auto) 0.0 % 03/14/22 07:05 Baso % (Auto) 0.4 % 03/14/22 07:05 Neut # (Auto) 17.92 10^3/uL (1.8-7.7) H 03/14/22 07:05 Lymph # (Auto) 1.7 10^3/uL (0.8-4.8) 03/14/22 07:05 [place] # (Auto) 1.5 10^3/uL (0.2-0.9) H 03/14/22 07:05 Eos # (Auto) 0.0 10^3/uL (0.0-0.8) 03/14/22 07:05 Baso # (Auto) 0.1 10^3/uL (0.0-0.1) 03/14/22 07:05 Nucleated RBC % (auto) 0.1 % 03/14/22 07:05 Nucleated RBCs # 0.0 /100WBC 03/14/22 07:05 Specimen Type Arterial 03/12/22 06:06 Sample Site Brachial, left 03/12/22 06:06 ABG pH 7.56 (7.35-7.45) H 03/12/22 06:06 ABG pCO2 30.4 mmHg (35-45) L 03/12/22 06:06 ABG pO2 54.5 mmHg (80.0-100.0) L 03/12/22 06:06 ABG HCO3 27.3 mmol/L (22-26) H 03/12/22 06:06 ABG Base Excess 5.7 mmol/L (-2.0-2.0) H 03/12/22 06:06 Anant Test Pos 03/12/22 06:06 Hematocrit 47.2 % (37-47) H 03/12/22 06:06 Hgb O2 Saturation 89.4 % (95-100) L 03/12/22 06:06 Carboxyhemoglobin 1.1 %THgb (0.4-20.1) 03/12/22 06:06 Methemoglobin 0.4 % (0.4-1.5) 03/12/22 06:06 Total Hemoglobin 15.4 g/dL (12-16) 03/12/22 06:06 O2 Delivery Device Nc 03/12/22 06:06 O2 Liters/Min 2.0 % 03/12/22 06:06 Associate Professor Of Psychology ID Hensa 03/12/22 06:06 Sodium 139 mmol/L (136-145) 03/14/22 07:05 Potassium 3.7 mmol/L (3.5-5.1) 03/14/22 07:05 Chloride 106 mmol/L (98-107) 03/14/22 07:05 Carbon Dioxide 17 mmol/L (22-29) L 03/14/22 07:05 Anion Gap 19.7 (5-19) H 03/14/22 07:05 BUN 19 mg/dL (8-23) 03/14/22 07:05 Creatinine 0.7 mg/dL (0.5-0.9) 03/14/22 07:05 GFR Calculation 83.7 mL/min (90-130) L 03/14/22 07:05 Glucose 168 mg/dL (65-115) H 03/14/22 07:05 Calculated Osmolality 294 mOsm/kg (285-295) 03/14/22 07:05 Lactic Acid 2.0 mmol/L (0.5-2.2) 03/12/22 06:05 Calcium 9.0 mg/dL (8.5-10.5) 03/14/22 07:05 Magnesium 2.1 mg/dL (1.7-2.3) 03/14/22 07:05 Total Bilirubin 1.2 mg/dL (0.15-1.2) 03/14/22 07:05 AST 58 U/L (0-32) H 03/14/22 07:05 ALT 88 U/L (0-33) H 03/14/22 07:05 Alkaline Phosphatase 217 IU/L (35-105) H 03/14/22 07:05 Ammonia 64 umol/L (11-51) H 03/14/22 07:05 Troponin T Baseline 21 ng/L (0-10) H 03/12/22 06:05 Troponin T 120 Minute 17.84 ng/L (0-10) H 03/12/22 08:25 Delta Troponin T -3.16 ABS# (0-10) L 03/12/22 08:25 Troponin T Hi Sens 6Hr 16.99 ng/L (0-10) H 03/12/22 12:13 Troponin T Hi Sens 6Hr Delta -4.01 ng/L (0-12) L 03/12/22 12:13 NT-Pro-B Natriuret Pep 817 pg/mL (0-125) H 03/12/22 06:05 Total Protein 5.4 g/dL (6.6-8.7) L 03/14/22 07:05 Albumin 3.3 g/dL (3.5-5.2) L 03/14/22 07:05 Globulin 2.1 g/dL (1.3-4.6) 03/14/22 07:05 Vitamin B12 585 pg/mL (232-1245) 03/12/22 06:05 TSH 7.69 uIU/mL (0.27-4.20) H 03/12/22 06:05 Urine Color Denise (Yellow) 03/13/22 14:10 Urine Appearance Hazy (CLEAR) A 03/13/22 14:10 Urine pH 5 (5-7) 03/13/22 14:10 Ur Specific [place] 1.010 (1.005-1.030) 03/13/22 14:10 Urine Protein Trace (Negative) 03/13/22 14:10 Urine Glucose (UA) Norm (Normal) 03/13/22 14:10 Urine Ketones Negative (Negative) 03/13/22 14:10 Urine Blood 2+ (Negative) H 03/13/22 14:10 Urine Nitrate Negative (Negative) 03/13/22 14:10 Urine Bilirubin 1+ (Negative) H 03/13/22 14:10 Urine Urobilinogen Norm mg/dL (Negative) 03/13/22 14:10 Ur Leukocyte Esterase Trace (Negative) H 03/13/22 14:10 Urine RBC 5-10 /hpf (0-2) H 03/13/22 14:10 Urine WBC 10-15 /hpf (0-5) H 03/13/22 14:10 Ur Squamous Epith Cells 10-15 /hpf (0-5) H 03/13/22 14:10 Amorphous Sediment Not Reportable 03/13/22 14:10 Urine Bacteria Trace /hpf (NONE) 03/13/22 14:10 Vancomycin Trough 25.6 ug/mL (10-15) H* 03/13/22 13:20 Influenza Type A Ag Negative (Negative) 03/12/22 07:07 Influenza Type B Ag Negative (Negative) 03/12/22 07:07 Vitals Last Vital Signs Temp 97.6 F 03/14/22 08:00 Pulse 92 03/14/22 08:00 Resp 15 03/14/22 08:00 BP 109/68 03/14/22 08:00 Pulse Ox 87 L 03/14/22 08:00 Discharge Plan Discharge Patient Disposition: Xfer SNF Condition: Stable Prescriptions: New morphine concentrate 100 mg/5 mL (20 mg/mL) solution 10 mg PO Q2H PRN (Reason: pain) Qty: 30 0RF lorazepam [Ativan] 2 mg/mL solution 2 mg sublingual Q6H PRN (Reason: anxiety) Qty: 30 0RF atropine [Isopto Atropine] 1 % Drops 3 drp sublingual Q4H PRN (Reason: Excessive Secretions, Rattling) Qty: 10 0RF Discontinued pantoprazole 40 mg tablet,delayed release (DR/EC) 40 mg PO DAILY 0RF albuterol sulfate 90 mcg/actuation HFA aerosol inhaler 2 puff INHALATION QID PRN (Reason: Shortness Of Breath) 0RF Excedrin Migraine 250-250-65 mg Tablet 2 tab PO Q6H PRN (Reason: Migraine Headache) 0RF Primatene Mist 0.125 mg/actuation Hfa Aerosol Inhaler 1 puff INHALATION Q4H PRN (Reason: asthma) 0RF Rx Instructions: may repeat once after 1 minute; do not exceed 8 inhalations per 24 hrs aspirin 325 mg tablet 1,300 mg PO BID PRN (Reason: Headache) 0RF dexamethasone 4 mg tablet 4 mg PO BID 0RF Discharge Orders: Discharge Order (Routine); Ordered 03/14/22 Ordered By: Deheraj Ovalle Referrals: [facility] ([facility]) [Outside] [facility], [Occupational Therapist] - Nhung Perkins PA [Primary Care Provider] - Discharge Diet: Regular Activity Restrictions/Additional Instructions: Admitted to hospice at nursing facility Use medication as prescribed for pain or anxiety Follow-up with hospice within the next 24 hours. Discharge Attestations Time Spent in Discharge Care*: greater than 30 min Quality Metrics Clinical Quality Measures [ No reported AMI, CVA or VTE this stay] Coding Level of Care Code Acute Chg [facility] note Diagnoses Pneumonia J18.9 Encephalopathy acute G93.40 Hypokalemia E87.6 Pleural effusion J90 Malignant neoplasm of lower lobe, right bronchus or lung C34.31
[2022-03-14 16:00] VITALS: BP 116/71; PULSE 107; RESP 16; TEMP 36.4; O2SAT 83
== END 2022-03-14 17:55 | disposition hospice, inpatient (51) | DRG 194 ==
LOC: ER 09:52 → ICU 13:21 → MEDSURG 03-13 10:42
PROVIDERS: Emergency Medicine; Admitting Provider Internal Medicine; Emergency Provider Family Medicine; PCP Physician Assistant; Visit Provider Internal Medicine
DX: J18.9 Pneumonia, unspecified organism (principal); C34.31 Malignant neoplasm of lower lobe, right bronchus or lung; C78.7 Secondary malignant neoplasm of liver and intrahepatic bile duct; J90 Pleural effusion, not elsewhere classified; Z79.899 Other long term (current) drug therapy; J43.9 Emphysema, unspecified; F17.210 Nicotine dependence, cigarettes, uncomplicated; I95.9 Hypotension, unspecified; E87.6 Hypokalemia; Z66 Do not resuscitate; K70.40 Alcoholic hepatic failure without coma; F10.10 Alcohol abuse, uncomplicated
CPT/HCPCS: 36415; 36600; 51702; 70450; 71045; 71275; 76705; 80053; 80202; 81001; 82140; 82607; 82805; 83605; 83735; 83880; 84443; 84484; 85025; 87040; 87493; 87641; 87804; 93005; 94640; 96365; 96372; 96375; 99285; C9113; J1630; J1650; J1956; J2060; J2543; J3370; J3411; J3480; Q9967